=== PATIENT | male | born 1960 | race Caucasian/White ===

== ENCOUNTER → 2019-05-10 | Outpatient (CLI) | payer BC ==
--- NOTE | 2019-05-10 15:47 | CT ---
EXAMINATION TYPE: CT abdomen wo con DATE OF EXAM: 05/10/2019 COMPARISON: None INDICATION: RUQ pain. Elevated liver enzymes DLP: 916.6 mGycm, Automated exposure control for dose reduction was used. CONTRAST: 100 mL of Isovue 300. Study performed with Oral Contrast TECHNIQUE: Axial images were obtained from above the diaphragm to the iliac crests in the axial plane at 5 mm thick sections. Reconstructed images are reviewed on the computer in the coronal plane. FINDINGS: Limited CT sections are obtained the lung bases. The lung bases are clear. CT ABDOMEN: Liver: Normal Spleen: Normal Pancreas: Normal Adrenal glands: The adrenal glands are normal. Gallbladder: Gallbladder is distended. There is some subtle inflammatory type change adjacent. Clinic al consideration for acute cholecystitis is recommended. Ultrasound could be performed for additional evaluation. Kidneys: No masses are evident. No hydronephrosis is present. No cysts are present. No renal stone s are identified. Aorta: Vascular calcification is within the aorta. Inferior vena cava: Normal. Loops of bowel without contrast within the [id number] appear unremarkable. Small amount of contras t within the stomach and proximal jejunum. IMPRESSIONS: 1. Distended gallbladder with some subtle inflammatory changes adjacent. Clinical consideration for acute cholecystitis is recommended. Ultrasound is recommended for additional evaluation.
== END | disposition home or self-care (01) ==
LOC: RADCTMAIN 14:30
PROVIDERS: ATTEND Internal Medicine Gastroenterology
DX: K82.8 Other specified diseases of gallbladder (principal)
CPT/HCPCS: 74150

== ENCOUNTER 2019-05-11 12:37 | Inpatient (IN) | payer BC ==
--- NOTE | 2019-05-11 13:14 | ED ---
Abdominal Pain HPI - General Chief Complaint: Abdominal Pain Stated Complaint: Abd pain Time Seen by Provider: 05/11/19 12:51 Source: patient, family, RN notes reviewed Mode of arrival: ambulatory Limitations: no limitations - History of Present Illness Initial Comments: 58-year-old male presents emergency Department chief complaint of right upper quadrant pain. Patient states he's been having on and off symptoms for last couple weeks. Patient saw his GI doctor and has CT and lab work yesterday. They told him that his liver enzymes, pancreatic enzymes are elevated and he has CT showed evidence of cholecystitis. Patient states he has some wax and wane pain does radiate to his back. States it just does not feel well. No chest pain or shortness breath. Patient's had prior hernia repair when he was 13 no other abdominal surgeries. Patient states that he has been very dark. He's been having some diarrhea. - Related Data Allergies Allergy/AdvReac Type Severity Reaction Status Date / Time ondansetron [From Zofran] Allergy Unknown Verified 05/11/19 12:47 Review of Systems ROS Statement: Those systems with pertinent positive or pertinent negative responses have been documented in the HPI. ROS Other: All systems not noted in ROS Statement are negative. Past Medical History Past Medical History: Diabetes Mellitus, Hypertension History of Any Multi-Drug Resistant Organisms: MRSA Date of last positivie culture/infection: 2002 MDRO Source:: groin Past Surgical History: Hernia Repair Past Psychological History: No Psychological Hx Reported Smoking Status: Never smoker Past Alcohol Use History: None Reported Past Drug Use History: None Reported General Exam Limitations: no limitations General appearance: alert, in no apparent distress Head exam: Present: atraumatic, normocephalic, normal inspection Eye exam: Present: normal appearance, PERRL, EOMI. Absent: scleral icterus, conjunctival injection, periorbital swelling Respiratory exam: Present: normal lung sounds bilaterally. Absent: respiratory distress, wheezes, rales, rhonchi, stridor Cardiovascular Exam: Present: regular rate, normal rhythm, normal heart sounds. Absent: systolic murmur, diastolic murmur, rubs, gallop, clicks GI/Abdominal exam: Present: soft, tenderness (Moderate right upper quadrant tenderness), normal bowel sounds. Absent: distended, guarding, rebound, rigid Back exam: Absent: CVA tenderness (R), CVA tenderness (L) Neurological exam: Present: alert Skin exam: Present: warm, dry, intact, normal color. Absent: rash Course Vital Signs 05/11/19 05/11/19 12:42 13:48 Temperature 98.2 F 98.3 F Pulse Rate 86 77 Respiratory 16 18 Rate Blood Pressure 150/85 165/85 O2 Sat by Pulse 99 99 Oximetry Medical Decision Making - Medical Decision Making Labs reveal evidence of acute pancreatitis, transaminitis with ultrasound consistent with acute cholecystitis. Patient will be admitted to medicine with consult to Dr. padilla and Dr. Sethi. Patient was started on antibiotics. - Lab Data Result diagrams: 05/11/19 13:05 05/11/19 13:05 Lab Results 05/11/19 05/11/19 05/11/19 Range/Units 13:05 13:05 13:05 WBC 7.8 (3.8-10.6) k/uL RBC 4.25 L (4.30-5.90) m/uL Hgb 11.9 L (13.0-17.5) gm/dL Hct 36.5 L (39.0-53.0) % MCV 85.8 (80.0-100.0) fL MCH 28.0 (25.0-35.0) pg MCHC 32.6 (31.0-37.0) g/dL RDW 13.0 (11.5-15.5) % Plt Count 343 (150-450) k/uL Neutrophils % 81 % Lymphocytes % 11 % Monocytes % 4 % Eosinophils % 2 % Basophils % 2 % Neutrophils # 6.3 (1.3-7.7) k/uL Lymphocytes # 0.8 L (1.0-4.8) k/uL Monocytes # 0.3 (0-1.0) k/uL Eosinophils # 0.1 (0-0.7) k/uL Basophils # 0.1 (0-0.2) k/uL Sodium 134 L (137-145) mmol/L Potassium 4.9 (3.5-5.1) mmol/L Chloride 103 (98-107) mmol/L Carbon Dioxide 24 (22-30) mmol/L Anion Gap 7 mmol/L BUN 26 H (9-20) mg/dL Creatinine 1.89 H (0.66-1.25) mg/dL Est GFR (CKD-EPI)AfAm 45 (>60 ml/min/1.73 sqM) Est GFR (CKD-EPI)NonAf 39 (>60 ml/min/1.73 sqM) Glucose 251 H (74-99) mg/dL Plasma Lactic Acid James 1.2 (0.7-2.0) mmol/L Calcium 8.3 L (8.4-10.2) mg/dL Total Bilirubin 1.4 H (0.2-1.3) mg/dL AST 93 H (17-59) U/L ALT 192 H (4-49) U/L Alkaline Phosphatase 465 H (38-126) U/L Total Protein 6.3 (6.3-8.2) g/dL Albumin 2.9 L (3.5-5.0) g/dL Amylase 98 (30-110) U/L Lipase 730 H (23-300) U/L Disposition Clinical Impression: Acute cholecystitis, Acute pancreatitis, Transaminitis Disposition: ADMITTED IP TO THIS HOSP Condition: Fair Referrals: Salvatore Peterson DO [Primary Care Provider] - 1-2 days
[2019-05-11 13:30] LABS: Basophils # (A) 0.1 k/uL (0-0.2); Basophils % (A) 2 %; Eosinophils # (A) 0.1 k/uL (0-0.7); Eosinophils % (A) 2 %; HCT 36.5 % (39.0-53.0); HGB 11.9 gm/dL (13.0-17.5); Lymphocytes # (A) 0.8 k/uL (1.0-4.8); Lymphocytes % (A) 11 %; MCHC 32.6 g/dL (31.0-37.0); MCV 85.8 fL (80.0-100.0); Mean Platelet Volume 7.5; Monocytes # (A) 0.3 k/uL (0-1.0); Monocytes % (A) 4 %; Neutrophils # (A) 6.3 k/uL (1.3-7.7); Neutrophils % (A) 81 %; Platelet Count 343 k/uL (150-450); RBC 4.25 m/uL (4.30-5.90); WBC 7.8 k/uL (3.8-10.6)
[2019-05-11 13:41] LABS: Albumin 2.9 g/dL (3.5-5.0); Calcium 8.3 mg/dL (8.4-10.2); Potassium 4.9 mmol/L (3.5-5.1); Total Bilirubin 1.4 mg/dL (0.2-1.3); Total Protein 6.3 g/dL (6.3-8.2)
--- NOTE | 2019-05-11 13:48 | US ---
EXAMINATION TYPE: US gallbladder DATE OF EXAM: 05/11/2019 COMPARISON: CT done 05/10/2019 CLINICAL HISTORY: abdnormal CT, RUQ pain. EXAM MEASUREMENTS: Liver Length: 14.8 cm Gallbladder Wall: 0.9 cm CBD: 0.4 cm Right Kidney: 14.1 x 5.8 x 5.5 cm Technically difficult study due to extensive midline bowel gas Pancreas: Obscured by bowel gas Liver: wnl Gallbladder: distended at 10.1 cm, full of thick layering sludge.Thickened wall. Evidence for sonographic Mauricio's sign: Yes CBD: wnl Right Kidney: No hydronephrosis or masses seen The pancreas is not visualized. The liver is normal in size without biliary dilatation. The gallbladder is full of sludge. The gallbladder wall is thickened measuring 9 mm. This common hepa tic duct measures 4 mm. There is a positive sonographic Mauricio's sign. The right kidney is normal. IMPRESSION: SLUDGE-FILLED GALLBLADDER WITH A THICKENED WALL AND POSITIVE SONOGRAPHIC MAURICIO'S SIGN SUGGEST ACUTE CHOLECYSTITIS.
[2019-05-11] MEDS ORDERED: PIPERACILLIN-TAZOBACTAM 3.375 GM in SODIUM CHLORIDE 0.9% 100 ML IVPB STA (14:03)
[2019-05-11] MEDS ORDERED: HYDROmorphone 1 MG/ML 1 ML SYRINGE IVP PRN (14:19)
[2019-05-11] MEDS ORDERED: NALOXONE 0.4 MG/ML 1 ML VIAL IV PRN (14:19)
[2019-05-11] MEDS ORDERED: HYDROmorphone 0.5 MG/0.5 ML SYRINGE IVP PRN (14:19)
[2019-05-11] MEDS: SODIUM CHLORIDE 0.9% 1,000 ML IV SCH (14:22)
[2019-05-11 17:10] LABS: Glucose,Whole Blood 145 mg/dL (75-99)
[2019-05-11] MEDS: INSULIN ASPART (NovoLOG) 100 UNIT/ML VIAL SQ SCH ×2 (17:34→22:31)
--- NOTE | 2019-05-11 19:01 | P.GSCN ---
History of Present Illness Consult date: 05/11/19 Reason for Consult: Acute cholecystitis History of present illness: 58-year-old male has had complaints of abdominal pain for the last 7-10 days. Pain has been present in the mid abdomen, right upper quadrant, and back. He was seen by his primary care physician this past Monday. Labs reveal elevated liver enzymes. He underwent evaluation by GI in the outpatient setting yesterday. CAT scan abdomen was then ordered. CAT scan shows a distended gallbladder with inflammatory changes. No significant evidence of pancreatitis or biliary dilation. No filling defect in the common bile duct seen. Today in the hospital his liver enzymes continue to show a trend towards improvement. Amylase is normal lipase is significantly elevated at over 700. Consult was placed to myself and Dr. Sethi. Patient states his pain today is about a 4 out of 10 where it was a 10 out of 10 5-6 days ago. Patient is diabetic. He has noticed some dark urine. Also noticed his skin was yellowish in color but improved. Review of Systems The patient denies any acute changes in vision or hearing, no dysphagia or odynophagia, no chest pain or shortness of breath, no dysuria or hematuria, no headache, no runny nose, no rectal bleeding or melena, no unexplained weight loss Past Medical History Past Medical History: Diabetes Mellitus, Hypertension History of Any Multi-Drug Resistant Organisms: MRSA Year Discovered:: 2002 MDRO Source:: groin Past Surgical History: Hernia Repair Past Psychological History: No Psychological Hx Reported Smoking Status: Never smoker Past Alcohol Use History: None Reported Past Drug Use History: None Reported Medications and Allergies Home Medications Medication Instructions Recorded Confirmed Type Dulaglutide [Trulicity] 0.75 mg SQ WE 05/11/19 05/11/19 History Glimepiride [Amaryl] 4 mg PO BID 05/11/19 05/11/19 History Omeprazole 20 mg PO DAILY 05/11/19 05/11/19 History Quinapril HCl [Accupril] 20 mg PO DAILY 05/11/19 05/11/19 History metFORMIN HCL 1,000 mg PO BID 05/11/19 05/11/19 History Allergies Allergy/AdvReac Type Severity Reaction Status Date / Time ondansetron [From Zofran] Allergy Unknown Verified 05/11/19 14:30 Surgical - Exam Vital Signs Temp Pulse Resp BP Pulse Ox 98.2 F 86 16 150/85 99 05/11/19 12:42 05/11/19 12:42 05/11/19 12:42 05/11/19 12:42 05/11/19 12:42 Physical exam: General: Well-developed, well-nourished HEENT: Normocephalic, sclerae nonicteric Abdomen: Right upper quadrant tenderness, nondistended Extremities: No edema Neuro: Alert and oriented Results - Labs 05/11/19 13:05 05/11/19 13:05 Abnormal Lab Results - Last 24 Hours (Table) 05/11/19 05/11/19 05/11/19 Range/Units 13:05 13:05 17:09 RBC 4.25 L (4.30-5.90) m/uL Hgb 11.9 L (13.0-17.5) gm/dL Hct 36.5 L (39.0-53.0) % Lymphocytes # 0.8 L (1.0-4.8) k/uL Sodium 134 L (137-145) mmol/L BUN 26 H (9-20) mg/dL Creatinine 1.89 H (0.66-1.25) mg/dL Glucose 251 H (74-99) mg/dL POC Glucose (mg/dL) 145 H (75-99) mg/dL Calcium 8.3 L (8.4-10.2) mg/dL Total Bilirubin 1.4 H (0.2-1.3) mg/dL AST 93 H (17-59) U/L ALT 192 H (4-49) U/L Alkaline Phosphatase 465 H (38-126) U/L Albumin 2.9 L (3.5-5.0) g/dL Lipase 730 H (23-300) U/L Diabetes panel 05/11/19 Range/Units 13:05 Sodium 134 L (137-145) mmol/L Potassium 4.9 (3.5-5.1) mmol/L Chloride 103 (98-107) mmol/L Carbon Dioxide 24 (22-30) mmol/L BUN 26 H (9-20) mg/dL Creatinine 1.89 H (0.66-1.25) mg/dL Glucose 251 H (74-99) mg/dL Calcium 8.3 L (8.4-10.2) mg/dL AST 93 H (17-59) U/L ALT 192 H (4-49) U/L Alkaline Phosphatase 465 H (38-126) U/L Total Protein 6.3 (6.3-8.2) g/dL Albumin 2.9 L (3.5-5.0) g/dL Calcium panel 05/11/19 Range/Units 13:05 Calcium 8.3 L (8.4-10.2) mg/dL Albumin 2.9 L (3.5-5.0) g/dL Pituitary panel 05/11/19 Range/Units 13:05 Sodium 134 L (137-145) mmol/L Potassium 4.9 (3.5-5.1) mmol/L Chloride 103 (98-107) mmol/L Carbon Dioxide 24 (22-30) mmol/L BUN 26 H (9-20) mg/dL Creatinine 1.89 H (0.66-1.25) mg/dL Glucose 251 H (74-99) mg/dL Calcium 8.3 L (8.4-10.2) mg/dL Adrenal panel 05/11/19 Range/Units 13:05 Sodium 134 L (137-145) mmol/L Potassium 4.9 (3.5-5.1) mmol/L Chloride 103 (98-107) mmol/L Carbon Dioxide 24 (22-30) mmol/L BUN 26 H (9-20) mg/dL Creatinine 1.89 H (0.66-1.25) mg/dL Glucose 251 H (74-99) mg/dL Calcium 8.3 L (8.4-10.2) mg/dL Total Bilirubin 1.4 H (0.2-1.3) mg/dL AST 93 H (17-59) U/L ALT 192 H (4-49) U/L Alkaline Phosphatase 465 H (38-126) U/L Total Protein 6.3 (6.3-8.2) g/dL Albumin 2.9 L (3.5-5.0) g/dL Assessment and Plan (1) Choledocholithiasis with acute cholecystitis Narrative/Plan: 58-year-old male with gallstone pancreatitis, choledocholithiasis, and acute cholecystitis. Patient's liver enzymes are trending down. Patient may have passed the stone already at this point. Residual acute cholecystitis seen on CAT scan and ultrasound. Case reviewed with GI by phone. They will evaluate the patient early tomorrow morning. Tentatively will plan laparoscopic cholecystectomy, possible open cholecystectomy tomorrow. Patient's clinical scenario was discussed in detail with him. He understands that there is a higher than usual risk of retained common bile duct stone given the history. If cholecystectomy occurs prior to any CBD evaluation than ERCP may be required postoperatively. Risks of bleeding, infection, bile leak, bile duct injury, trocar injury, conversion to an open procedure, hernia, anesthesia related complications were reviewed. The patient understands and wishes to proceed if cleared by GI. Current Visit: Yes Status: Acute Code(s): K80.42 - CALCULUS OF BILE DUCT W ACUTE CHOLECYSTITIS W/O OBSTRUCTION SNOMED Code(s): 32151362
[2019-05-11 19:41] LABS: Glucose,Whole Blood 92 mg/dL (75-99)
[2019-05-11 20:15] LABS: Appearance,Urine Clear (Clear); Bilirubin,Urine Negative (Negative); Blood,Urine Small (Negative); Color,Urine Yellow; Glucose,Urine (UA) 3+ (Negative); Ketones,Urine Negative (Negative); Leukocyte Esterase,Urine Negative (Negative); Mucus,Urine Rare /hpf; Nitrite,Urine Negative (Negative); Protein,Urine 3+ (Negative); RBC,Urine 1 /hpf (0-5); Specific Gravity,Urine 1.015 (1.001-1.035); WBC,Urine 1 /hpf (0-5)
[2019-05-11] MEDS: PIPERACILLIN-TAZOBACTAM 3.375 GM in SODIUM CHLORIDE 0.9% 100 ML IVPB SCH (23:46)
[2019-05-12 00:03] LABS: Glucose,Whole Blood 58 mg/dL (75-99)
[2019-05-12 00:28] LABS: Glucose,Whole Blood 71 mg/dL (75-99)
[2019-05-12 00:49] LABS: Glucose,Whole Blood 99 mg/dL (75-99)
[2019-05-12] MEDS: SODIUM CHLORIDE 0.9% 1,000 ML IV SCH ×3 (02:35→22:19)
[2019-05-12 04:20] LABS: Glucose,Whole Blood 176 mg/dL (75-99)
[2019-05-12 06:58] LABS: Glucose,Whole Blood 143 mg/dL (75-99)
[2019-05-12] MEDS: INSULIN ASPART (NovoLOG) 100 UNIT/ML VIAL SQ SCH ×4 (07:27→20:06)
[2019-05-12 07:53] LABS: Basophils # (A) 0.1 k/uL (0-0.2); Basophils % (A) 1 %; Eosinophils # (A) 0.1 k/uL (0-0.7); Eosinophils % (A) 1 %; HCT 33.3 % (39.0-53.0); HGB 10.8 gm/dL (13.0-17.5); Lymphocytes # (A) 0.9 k/uL (1.0-4.8); Lymphocytes % (A) 9 %; MCH 28.1 pg (25.0-35.0); MCHC 32.3 g/dL (31.0-37.0); MCV 86.9 fL (80.0-100.0); Mean Platelet Volume 7.5; Monocytes # (A) 0.3 k/uL (0-1.0); Monocytes % (A) 3 %; Neutrophils # (A) 8.6 k/uL (1.3-7.7); Neutrophils % (A) 85 %; Platelet Count 335 k/uL (150-450); RBC 3.83 m/uL (4.30-5.90); RDW 12.9 % (11.5-15.5); WBC 10.1 k/uL (3.8-10.6)
[2019-05-12 08:06] LABS: Albumin 2.6 g/dL (3.5-5.0); Calcium 8.4 mg/dL (8.4-10.2); Potassium 5.1 mmol/L (3.5-5.1); Total Bilirubin 1.4 mg/dL (0.2-1.3); Total Protein 5.8 g/dL (6.3-8.2)
[2019-05-12] MEDS: PIPERACILLIN-TAZOBACTAM 3.375 GM in SODIUM CHLORIDE 0.9% 100 ML IVPB SCH ×3 (08:17→23:50)
[2019-05-12 09:01] LABS: Amylase 75 U/L (30-110)
[2019-05-12] MEDS ORDERED: BUPIVACAINE (PF) 0.25% 30 ML VIAL SQ ONE ×2 (10:04)
--- NOTE | 2019-05-12 10:28 | P.PN ---
Progress Note - Text Progress Note Date: 05/12/19 Patient seen today in preop. He was evaluated earlier today by GI. We spoke by phone following that evaluation. She is in agreement that proceeding with cholecystectomy at this time is reasonable. She has no immediate plans for ERCP. Possible liver biopsy will be performed if the liver has an abnormal appearance. Additional workup is planned by GI postoperatively based on the trending lab values. Clinical scenario discussed with the was present here today. All questions answered.
[2019-05-12] MEDS ORDERED: NEOSTIGMINE 1 MG/ML 10 ML VIAL ONE (10:54)
[2019-05-12] MEDS ORDERED: GLYCOPYRROLATE 0.2 MG/ML 2 ML VIAL ONE (10:54)
[2019-05-12] MEDS ORDERED: fentaNYL (PF) 50 MCG/ML 2 ML AMP ONE (10:54)
[2019-05-12] MEDS ORDERED: HYDROmorphone (PF) 1 MG/ML ONE (10:54)
[2019-05-12] MEDS ORDERED: SUCCINYLCHOLINE CHLORIDE VIAL 200 MG/10 ML VIAL IV ONE (10:54)
[2019-05-12] MEDS ORDERED: LIDOCAINE 2% INJ 20 MG/ML (20 ML MDV) ONE (10:54)
[2019-05-12] MEDS ORDERED: MIDAZOLAM 2 MG/2 ML VIAL ONE (10:54)
[2019-05-12] MEDS ORDERED: ROCURONIUM BROMIDE 10 MG/ML 10 ML VIAL IV ONE (10:54)
[2019-05-12] MEDS ORDERED: LIDOCAINE 1% INJ 10MG/ML (20 ML MDV) ONE (10:54)
[2019-05-12] MEDS ORDERED: PROPOFOL 10 MG/ML 20 ML VIAL IV ONE (10:54)
[2019-05-12] MEDS ORDERED: LACTATED RINGERS 1,000 ML IV ONE ×3 (10:55→13:29)
--- NOTE | 2019-05-12 10:55 | CONS ---
CONSULTATION DATE OF CONSULTATION: May 12, 2019. REQUESTING PHYSICIAN: Dr. Peterson. REASON FOR CONSULTATION: Abdominal pain, elevated LFTs. HISTORY OF PRESENT ILLNESS: The patient is a 58-year-old pleasant white male who came into the emergency room yesterday and complaining of not feeling well for the last 10 days duration. He initially had some upper respiratory symptoms around [place] time that lasted for 3-4 days and resolved. Subsequently on [place], he started experiencing periumbilical and right upper quadrant abdominal pain that was more like an achy feeling that continued to progressively get worse. In the next 2 days, the pain was much more intense, associated with some nausea and bilious emesis. He got concerned. He went and saw Dr. Peterson on an outpatient basis a week ago and was noted to have elevated LFTs with bilirubin of 3.3, mild elevation of serum transaminases in the 200 range and slightly elevated lipase at 700. He was given some Zofran for the nausea and vomiting and he was referred to GI for further workup. In the meantime, he was seen by a nurse practitioner Marilin Sims about 2 days ago and repeat labs showed slightly improved bilirubin to 2.4 with mild improvement of serum transaminases. He had a CT of the abdomen and pelvis done on an outpatient basis that showed a distended gallbladder with some inflammatory changes consistent with possible acute cholecystitis. The patient was notified by the results and in the meantime, he continued to not feel well and hence he came into the emergency room yesterday and subsequently admitted to the hospital for further evaluation. He had a repeat ultrasound of the gallbladder done which once again showed distended gallbladder which was slightly thickened and possibility of acute cholecystitis is being considered. Dr. James was consulted and patient is scheduled for gallbladder surgery this morning. He never had these symptoms in past. No history of chronic liver disease. He has longstanding history of diabetes mellitus for 15 years and obesity. No recent new medications have been given to him in the last 2 months. PAST MEDICAL HISTORY: He has past medical history of diabetes mellitus, hypertension. PAST SURGICAL HISTORY: Hernia repair. MEDICATIONS: At home include: Amaryl, Trulicity, omeprazole, Accupril, and metformin. ALLERGIES: ZOFRAN. SOCIAL HISTORY: No smoking. No alcohol use. FAMILY HISTORY: Unremarkable. REVIEW OF SYMPTOMS: CARDIOPULMONARY: No chest pain, shortness of breath. GENITOURINARY: No dysuria or hematuria. MUSCULOSKELETAL unremarkable. SKIN unremarkable. ENDOCRINE unremarkable. PSYCHIATRIC unremarkable. NEUROLOGY unremarkable. ENT/vision unremarkable. CONSTITUTIONAL: No recent weight loss. No fever, chills, night sweats. PHYSICAL EXAMINATION: He appears comfortable. No apparent distress. Vital signs are stable. Blood pressure is 158/88, pulse rate 78. Temperature 98.2. HEENT examination unremarkable. Conjunctivae pink. Sclerae anicteric. Oral cavity no lesions. NECK: No JVD or lymph node enlargement. CHEST: Clear to auscultation. HEART: Regular rate and rhythm. ABDOMEN: Soft. There was minimal tenderness in the right upper quadrant area. The rest of the abdomen was benign. Bowel sounds are positive. No organomegaly. EXTREMITIES: No pedal edema. SKIN no rashes. NEUROLOGIC: Alert and oriented x3. No focal deficits. LABS: At the time of admission to the hospital, WBC 7.8, hemoglobin 11.9, platelets are within normal limits. Sodium 134, BUN 26, creatinine 1.89, and calcium 8.3, T- bilirubin is 1.4, AST 93, ALT 192, alkaline phosphatase 465 and lipase was 730. Labs from today: T-bilirubin is around 1.4, AST 60, ALT 147, alkaline phosphatase is 416, lipase is 449, BUN is 23, creatinine 1.93. Hemoglobin today is 10.8, WBC 10.1, and platelets 335,000. Ultrasound of the gallbladder did show distended gallbladder with sludge with thickening of the gallbladder wall consistent with possible acute cholecystitis. IMPRESSION: The patient presents with ongoing epigastric right upper quadrant abdominal pain for the last 10 days duration. Symptoms have been progressively getting worse associated with intermittent nausea, vomiting. He was also noted to have elevated LFTs with jaundice and bilirubin a week ago was 3.3, which has slowly come down to 1.4, alkaline phosphatase is elevated around 400. CT of the abdomen without contrast as well as ultrasound of the abdomen showed distended gallbladder with thickening of the gallbladder wall consistent with acute cholecystitis. It is likely that clinically patient does have acute cholecystitis which is causing some of the symptoms, but the elevated LFTs could indicate possibility of underlying chronic liver disease. The patient has no prior history of chronic liver disease. No history of jaundice or hepatitis in the past. Doubt choledocholithiasis but this cannot be entirely excluded. RECOMMENDATIONS: 1. The patient is already scheduled for laparoscopic cholecystectomy by Dr. James today, which he can proceed. 2. At the time of surgery, can consider liver biopsy based on appearance of the liver. 3. In the meantime, we will continue to watch his serum transaminases closely. 4. May consider an MRCP. 5. We will consider workup for chronic liver disease if he continues to have persistent elevation of serum transaminases. The plan was discussed with the patient, his family, as well as Dr. James. We will follow with him closely during his hospital stay. Thank you for this consultation. MMODL / IJN: [id number] /
[2019-05-12] MEDS ORDERED: ceFAZolin 1,000 MG VIAL IVPB ONE (11:23)
[2019-05-12] MEDS: HYDROmorphone 1 MG/ML 1 ML SYRINGE IVP ONE ×2 (11:58→12:02)
--- NOTE | 2019-05-12 13:59 | P.OP ---
Date of Procedure: 05/12/19 Procedure(s) Performed: PREOPERATIVE DIAGNOSIS: Acute cholecystitis with history of gallstone pancreatitis POSTOPERATIVE DIAGNOSIS: Same PROCEDURE: Attempted laparoscopic cholecystectomy, open cholecystectomy SURGEON: Erkia EBL: 300 mL ANESTHESIA: Gen. COMPLICATIONS: None OPERATIVE PROCEDURE: The patient was brought and placed on the operating room table in the supine position. The patient was placed under general anesthesia at that time. The abdomen was prepped and draped in the usual sterile fashion. A small vertical infraumbilical incision was made. The fascia was grasped with the Sunni forceps. The fascia was retracted anteriorly. The Veress needle was advanced into the peritoneal cavity. The saline drop test was normal. Insufflation took place up to 15 mmHg. A 5 mm optical trocar was advanced and the peritoneal cavity. 2 additional 5 mm trochars were placed in the right upper quadrant under direct visualization. A 12 mm trocar was advanced into the epigastric incision site. The omentum was noted to be adherent to the gallbladder fairly densely. Blunt dissection occurred and we were able to identify the proximal fundus of the gallbladder. It was acutely inflamed. The wall was clearly quite thickened. This was not able to be grasped because of the distention of the gallbladder. A small opening was made and the contents were evacuated. Clear fluid was encountered consistent with hydrops. Further blunt dissection then occurred while trying to retract the gallbladder superiorly laterally and anteriorly. The degree of adhesions between the omentum and the gallbladder was very significant. As we reached the infundibulum further blunt dissection ensued and I was able to visualize what I thought represented the cystic duct. We were able to encircle this structure using blunt dissection. A 2-0 Ethibond was used to ligate this structure along with a 12 mm clip. This was then divided and the specimen side. As I bluntly dissected posterior to that I encountered necrotic gallbladder and a small opening was identified in the gallbladder. A large amount of sludge was evacuated through that opening. At this point I was not confident that the structure ligated was in fact the cystic duct and given the gangrenous changes of the gallbladder at this level I decided it would be best to convert to an open approach. The pneumoperitoneum was evacuated. An incision was made between the 12 mm site and the lateral 5 mm incision site. The skin was divided using the scalpel. The subcutaneous tissues and fascia were divided using electrocautery. The Bookwalter retractor was utilized. I then removed the gallbladder from the liver bed using electrocautery. Again this was painstaking given the degree of inflammatory change present. As we approached the infundibulum we did identify that the gangrenous changes involved primarily the infundibulum. 2 small vessels were seen entering into the gallbladder and clipped. The structure that had been ligated laparoscopically did in fact appear to represent the cystic duct. No additional ductal structures were seen. There was never any bile present within the field. The gallbladder was passed off. The area was copiously irrigated with saline. No bleeding or bilious drainage was seen. A drain was then brought into the field from a stab incision in the right midabdomen. This was placed along the right gutter and gallbladder fossa. This is sutured in place using a 2-0 silk stitch. The fascia was then reapproximated in 2 layers using a double-stranded #1 PDS sutures. The subcutaneous tissues were closed using 3-0 Vicryl sutures. The skin was closed using jermain and the 2 additional trocar sites were closed using 4-0 Monocryl sutures. Sterile dressings were applied. At the end of this procedure the sponge and needle counts were correct. DISPOSITION: Stable to the recovery room
[2019-05-12] MEDS ORDERED: ROPIVACAINE 250 MG, HYDROMORPHONE (PF) 5 MG in SODIUM CHLORIDE 0.9% 200 ML EPIDURAL PRN (14:50)
[2019-05-12] MEDS ORDERED: NALOXONE 0.4 MG/ML 1 ML VIAL IV PRN (14:50)
[2019-05-12 17:00] LABS: Glucose,Whole Blood 225 mg/dL (75-99)
[2019-05-12] MEDS: HEPARIN SODIUM,PORCINE 5,000 UNIT/ML 1 ML VIAL SQ SCH ×2 (17:26→23:49)
[2019-05-12] MEDS ORDERED: METOCLOPRAMIDE 5 MG/ML 2 ML VIAL IVP PRN (18:33)
[2019-05-12 20:23] LABS: Glucose,Whole Blood 243 mg/dL (75-99)
--- NOTE | 2019-05-12 23:18 | P.HPIM ---
History of Present Illness H&P Date: 05/12/19 Chief Complaint: Abdominal pain History of presenting complaint: This is a pleasant 58-year-old patient of Dr. Adrian Monreal. Patient started feeling unwell from the ears. Started having right upper quadrant pain and discomfort achiness. Patient progressive to get worse. Started having some nausea and vomiting. He went and saw his family doctor about a week ago and was found to have elevated LFTs and bilirubin. Was given Zofran and referred for GI consultation. He was seen by no spectator at . to was office Monday she'll 2 days ago and now some improvement in her liver parameters. Computed tomography scan done as an outpatient did show distention of the gallbladder with the patient from retreat changes suggestive of acute cholecystitis. Patient's symptoms are per persisted. Patient did present to the ER. Ultrasound did confirm the same. I came to see the patient twice this morning at all been taken to the operating room. There from her laparoscopic was converted to open cholecystectomy. Gangrenous gallbladder was encountered. Patient has a PROSPER drain. Review of systems: GEN.: Weak tired fever chills EYES: None HEENT: None NECK: None RESPIRATORY: None CARDIOVASCULAR: None GASTROINTESTINAL: As above GENITOURINARY: None MUSCULOSKELETAL: None LYMPHATICS: None HEMATOLOGICAL: None PSYCHIATRY: None NEUROLOGICAL: None Past history to include: Diabetes, hypertension, MRSA infection Social history: Does not smoke or drink cold. Does computer designing. . Negative family history Physical examination: VITAL SIGNS: 98.2, 86, 16, 150/85, 99% room air GENERAL: [BMI 35.7, laying in bed tired. Epidural place EYES: Pupils equal. Conjunctiva normal. HEENT: External appearance of nose and ears normal, oral cavity grossly normal. NECK: JVD not raised; masses not palpable. HEART: First and second heart sounds are normal; no edema. LUNGS: Respiratory rate normal; clear to auscultation. ABDOMEN: Soft, tender, right PROSPER drain present, decreased bowel sounds liver spleen not palpable, no masses palpable. PSYCH: Alert and oriented x3; mood and affect normal. NEUROLOGICAL: Cranial nerves grossly intact; no facial asymmetry, power and sensation grossly intact. LYMPHATICS: No lymph nodes palpable in the axilla and neck INVESTIGATIONS, reviewed in the clinical context: White count 7.8 hemoglobin 11.9 platelets 343 potassium 4.9 Bun 26 crit 1.89 Total bilirubin 1.4 AST 93 AST 192 Amylase 98 lipase 7:30 [id number], 92, 58 Abdominal ultrasound-Lai flow sludge and thickened colon, hepatic duct 4 mm positive Mauricio sign Computed tomography scan of the abdomen from May 10-gallbladder distended Assessment: -Acute gangrenous cholecystitis, followed by cholecystectomy patient requiring laparoscopically converted to open. Patient has a PROSPER drain -Obesity BMI 35.7 -Essential hypertension -Diabetes mellitus type 2 on oral hypoglycemic, uncontrolled with hypoglycemia - Plan: Patient is currently on IV Zosyn. Epidural. Blood pressures running high. We'll put the patient were Catapres patch. Accu-Cheks will be followed with sliding scale include. Currently oral hypoglycemic 7 held. Care was discussed with the patient question were answered .. Patient's surgeon is Dr. Malik GI is Dr. Jamia Cervantes Past Medical History Past Medical History: Diabetes Mellitus, Hypertension History of Any Multi-Drug Resistant Organisms: MRSA Date of last positivie culture/infection: 2002 MDRO Source:: groin Past Surgical History: Hernia Repair Past Psychological History: No Psychological Hx Reported Smoking Status: Never smoker Past Alcohol Use History: None Reported Past Drug Use History: None Reported Medications and Allergies Home Medications Medication Instructions Recorded Confirmed Type Dulaglutide [Trulicity] 0.75 mg SQ WE 05/11/19 05/11/19 History Glimepiride [Amaryl] 4 mg PO BID 05/11/19 05/11/19 History Omeprazole 20 mg PO DAILY 05/11/19 05/11/19 History Quinapril HCl [Accupril] 20 mg PO DAILY 05/11/19 05/11/19 History metFORMIN HCL 1,000 mg PO BID 05/11/19 05/11/19 History Allergies Allergy/AdvReac Type Severity Reaction Status Date / Time ondansetron [From Zofran] Allergy Unknown Verified 05/11/19 14:30 Physical Exam Vitals: Vital Signs Temp Pulse Pulse Resp BP BP Pulse Ox 05/12/19 04:23 98.2 F 78 16 158/88 97 05/11/19 19:43 98.1 F 88 16 168/88 98 05/11/19 18:20 88 189/93 05/11/19 16:10 98.5 F 84 22 190/103 99 05/11/19 15:30 98.8 F 77 16 175/85 99 05/11/19 13:48 98.3 F 77 18 165/85 99 05/11/19 12:42 98.2 F 86 16 150/85 99 Intake and Output 05/11/19 05/12/19 05/12/19 22:59 06:59 14:59 Intake Total 1600 700 Balance 1600 700 Intake: Amount of Fluid Infused ( 1200 ml) Intake, IV Titration 400 700 Amount Piperacillin-Tazobactam 3 100 .375 gm In Sodium Chloride 0.9% 100 ml @ 25 mls/hr IVPB Q8HR [facility] Rx# :[id number] Sodium Chloride 0.9% 1, 400 600 000 ml @ 100 mls/hr IV . Q10H [facility] Rx#:[id number] Other: Voiding Method Toilet Toilet # Voids 2 2 Weight 116.12 kg Results CBC & Chem 7: 05/12/19 07:15 05/12/19 07:15 Labs: Abnormal Lab Results - Last 24 Hours (Table) 05/11/19 05/11/19 05/11/19 Range/Units 13:05 13:05 16:40 RBC 4.25 L (4.30-5.90) m/uL Hgb 11.9 L (13.0-17.5) gm/dL Hct 36.5 L (39.0-53.0) % Neutrophils # (1.3-7.7) k/uL Lymphocytes # 0.8 L (1.0-4.8) k/uL Sodium 134 L (137-145) mmol/L BUN 26 H (9-20) mg/dL Creatinine 1.89 H (0.66-1.25) mg/dL Glucose 251 H (74-99) mg/dL POC Glucose (mg/dL) (75-99) mg/dL Calcium 8.3 L (8.4-10.2) mg/dL Total Bilirubin 1.4 H (0.2-1.3) mg/dL AST 93 H (17-59) U/L ALT 192 H (4-49) U/L Alkaline Phosphatase 465 H (38-126) U/L Total Protein (6.3-8.2) g/dL Albumin 2.9 L (3.5-5.0) g/dL Lipase 730 H (23-300) U/L Urine Protein 3+ H (Negative) Urine Glucose (UA) 3+ H (Negative) Urine Blood Small H (Negative) Urine Mucus Rare H (None) /hpf 05/11/19 05/12/19 05/12/19 Range/Units 17:09 00:01 00:25 RBC (4.30-5.90) m/uL Hgb (13.0-17.5) gm/dL Hct (39.0-53.0) % Neutrophils # (1.3-7.7) k/uL Lymphocytes # (1.0-4.8) k/uL Sodium (137-145) mmol/L BUN (9-20) mg/dL Creatinine (0.66-1.25) mg/dL Glucose (74-99) mg/dL POC Glucose (mg/dL) 145 H 58 L 71 L (75-99) mg/dL Calcium (8.4-10.2) mg/dL Total Bilirubin (0.2-1.3) mg/dL AST (17-59) U/L ALT (4-49) U/L Alkaline Phosphatase (38-126) U/L Total Protein (6.3-8.2) g/dL Albumin (3.5-5.0) g/dL Lipase (23-300) U/L Urine Protein (Negative) Urine Glucose (UA) (Negative) Urine Blood (Negative) Urine Mucus (None) /hpf 05/12/19 05/12/19 05/12/19 Range/Units 04:19 06:57 07:15 RBC 3.83 L (4.30-5.90) m/uL Hgb 10.8 L (13.0-17.5) gm/dL Hct 33.3 L (39.0-53.0) % Neutrophils # 8.6 H (1.3-7.7) k/uL Lymphocytes # 0.9 L (1.0-4.8) k/uL Sodium (137-145) mmol/L BUN (9-20) mg/dL Creatinine (0.66-1.25) mg/dL Glucose (74-99) mg/dL POC Glucose (mg/dL) 176 H 143 H (75-99) mg/dL Calcium (8.4-10.2) mg/dL Total Bilirubin (0.2-1.3) mg/dL AST (17-59) U/L ALT (4-49) U/L Alkaline Phosphatase (38-126) U/L Total Protein (6.3-8.2) g/dL Albumin (3.5-5.0) g/dL Lipase (23-300) U/L Urine Protein (Negative) Urine Glucose (UA) (Negative) Urine Blood (Negative) Urine Mucus (None) /hpf 05/12/19 05/12/19 Range/Units 07:15 07:15 RBC (4.30-5.90) m/uL Hgb (13.0-17.5) gm/dL Hct (39.0-53.0) % Neutrophils # (1.3-7.7) k/uL Lymphocytes # (1.0-4.8) k/uL Sodium 136 L (137-145) mmol/L BUN 23 H (9-20) mg/dL Creatinine 1.93 H (0.66-1.25) mg/dL Glucose 153 H (74-99) mg/dL POC Glucose (mg/dL) (75-99) mg/dL Calcium (8.4-10.2) mg/dL Total Bilirubin 1.4 H (0.2-1.3) mg/dL AST 60 H (17-59) U/L ALT 147 H (4-49) U/L Alkaline Phosphatase 416 H (38-126) U/L Total Protein 5.8 L (6.3-8.2) g/dL Albumin 2.6 L (3.5-5.0) g/dL Lipase 449 H (23-300) U/L Urine Protein (Negative) Urine Glucose (UA) (Negative) Urine Blood (Negative) Urine Mucus (None) /hpf Thrombosis Risk Factor Assmnt - Choose All That Apply Each Factor Represents 1 point: Age 41-60 years Each Risk Factor Represents 2 Points: Laparoscopic surgery Thrombosis Risk Factor Assessment Total Risk Factor Score: 3 Thrombosis Risk Factor Assessment Level: Moderate Risk
[2019-05-13] MEDS: SODIUM CHLORIDE 0.9% 1,000 ML IV SCH ×3 (03:35→21:30)
[2019-05-13] MEDS ORDERED: SODIUM CHLORIDE 0.9% 1,000 ML IV ONE ×2 (04:46→12:25)
[2019-05-13 07:01] LABS: Glucose,Whole Blood 228 mg/dL (75-99)
[2019-05-13] MEDS: PIPERACILLIN-TAZOBACTAM 3.375 GM in SODIUM CHLORIDE 0.9% 100 ML IVPB SCH ×2 (08:16→16:16)
[2019-05-13] MEDS: INSULIN ASPART (NovoLOG) 100 UNIT/ML VIAL SQ SCH ×4 (08:16→20:28)
[2019-05-13] MEDS: HEPARIN SODIUM,PORCINE 5,000 UNIT/ML 1 ML VIAL SQ SCH ×2 (08:16→16:17)
[2019-05-13] MEDS: PANTOPRAZOLE 40 MG/10 ML VIAL IV SCH (08:16)
[2019-05-13 09:21] LABS: Basophils # (A) 0.1 k/uL (0-0.2); Basophils % (A) 1 %; Eosinophils % (A) 0 %; HCT 34.8 % (39.0-53.0); HGB 10.9 gm/dL (13.0-17.5); Lymphocytes # (A) 0.8 k/uL (1.0-4.8); Lymphocytes % (A) 5 %; MCH 28.1 pg (25.0-35.0); MCHC 31.4 g/dL (31.0-37.0); MCV 89.4 fL (80.0-100.0); Mean Platelet Volume 8.1; Monocytes # (A) 0.5 k/uL (0-1.0); Monocytes % (A) 3 %; Neutrophils # (A) 12.7 k/uL (1.3-7.7); Neutrophils % (A) 90 %; Platelet Count 347 k/uL (150-450); RBC 3.89 m/uL (4.30-5.90); RDW 13.1 % (11.5-15.5); WBC 14.1 k/uL (3.8-10.6)
[2019-05-13 09:27] LABS: Albumin 2.9 g/dL (3.5-5.0); Calcium 7.9 mg/dL (8.4-10.2); Potassium 5.4 mmol/L (3.5-5.1); Total Bilirubin 1.2 mg/dL (0.2-1.3); Total Protein 6.3 g/dL (6.3-8.2)
[2019-05-13 11:33] LABS: Glucose,Whole Blood 215 mg/dL (75-99)
[2019-05-13] MEDS ORDERED: NALOXONE 0.4 MG/ML 1 ML VIAL IV PRN (12:06)
--- NOTE | 2019-05-13 12:06 | P.PN ---
Progress Note - Text Progress Note Date: 05/13/19 58-year-old male status post open cholecystectomy with thoracic epidural postop day #1 catheter day #2. VAS is a 0-2 out of 10 in severity depending on movement. Current rate is 7 ML's an hour. Patient has no motor sensory deficits. Does have complaints of urinary retention. He just had a full catheter placed. No compressive pruritus. Plan is to continue epidural at current setting and to switch to narcotic free solution.
[2019-05-13] MEDS: METOCLOPRAMIDE 5 MG/ML 2 ML VIAL IVP SCH ×2 (12:34→18:27)
--- NOTE | 2019-05-13 12:39 | P.PN ---
<Padma Valle Kai - Last Filed: 05/13/19 12:37> Subjective Progress Note Date: 05/13/19 CHIEF COMPLAINT: abdominal pain HISTORY OF PRESENT ILLNESS: 58-year-old male who is status post attempted laparoscopic cholecystectomy converted to open cholecystectomy. Postop day #1. Patient examined this morning at the bedside. Patient reports his pain is tolerable. Epidural is currently infusing at 7 mL an hour. He does complain of dizziness while laying in bed and when ambulating. His blood pressure has been stable. He reports urinary retention. He currently does not have a Costa catheter in place. He reports nausea this morning and an episode of emesis overnight. He states he had a few sips of liquids this morning for breakfast. WBC increased to 14.1. Creatinine up to 2.88 today. PHYSICAL EXAM: VITAL SIGNS: Reviewed. GENERAL: Well-developed in no acute distress. HEENT: No sclera icterus. Extraocular movements grossly intact. Moist buccal mucosa. Head is atraumatic, normocephalic. ABDOMEN: Soft. Mild distention. PROSPER with serosanguineous drainage. Dressing clean dry and intact. NEUROLOGIC: Alert and oriented. Cranial nerves II through XII grossly intact. ASSESSMENT: 1. Acute cholecystitis with history of gallstone pancreatitis PLAN: -Patient with urinary retention secondary to epidural infusion. Nursing to place costa catheter today. Increased creatinine may also be secondary to urinary retention. Will continue to monitor kidney function. Repeat in AM. Consult nephrology. Avoid nephrotoxic agents if possible. -Continue IV fluids. Increase rate to 125cc/hr -1L NS bolus x 1 now -Pain control. Continue epidural. -Continue clear liquid diet. Will change Reglan to scheduled every 6 hours due to nausea. Patient with allergy to Zofran. -Continue Zosyn. Monitor WBC. Repeat daily. Nurse practitioner note has been reviewed by physician. Signing provider agrees with the documented findings, assessment, and plan of care. Objective - Vital Signs Vital signs: Vital Signs Temp 97.0 F L 05/13/19 11:14 Pulse 69 05/13/19 11:14 Resp 16 05/13/19 11:14 BP 134/63 05/13/19 11:14 Pulse Ox 98 05/13/19 11:14 Intake & Output 05/12/19 05/13/19 05/13/19 18:59 06:59 18:59 Intake Total 2500 3000 Output Total 330 585 Balance 2170 2415 Intake: IV 2500 Intake, IV Titration 2400 Amount Piperacillin-Tazobactam 3 200 .375 gm In Sodium Chloride 0.9% 100 ml @ 25 mls/hr IVPB Q8HR [facility] Rx# :[id number] Sodium Chloride 0.9% 1, 1200 000 ml @ 100 mls/hr IV . Q10H [facility] Rx#:[id number] Sodium Chloride 0.9% 1, 1000 000 ml @ 250 mls/hr IV . Q4H [facility] Rx#:[id number] Oral 600 Output: Drainage 30 65 Right Abdomen 30 65 Urine 120 Emesis 400 Estimated Blood Loss 300 Other: Voiding Method Toilet Toilet Toilet Urinal Urinal # Voids 0 - Labs CBC & Chem 7: 05/13/19 08:00 05/13/19 08:00 Labs: Abnormal Lab Results - Last 24 Hours (Table) 05/12/19 05/12/19 05/13/19 Range/Units 16:59 20:03 06:57 WBC (3.8-10.6) k/uL RBC (4.30-5.90) m/uL Hgb (13.0-17.5) gm/dL Hct (39.0-53.0) % Neutrophils # (1.3-7.7) k/uL Lymphocytes # (1.0-4.8) k/uL Sodium (137-145) mmol/L Potassium (3.5-5.1) mmol/L BUN (9-20) mg/dL Creatinine (0.66-1.25) mg/dL Glucose (74-99) mg/dL POC Glucose (mg/dL) 225 H 243 H 228 H (75-99) mg/dL Calcium (8.4-10.2) mg/dL ALT (4-49) U/L Alkaline Phosphatase (38-126) U/L Albumin (3.5-5.0) g/dL 05/13/19 05/13/19 05/13/19 Range/Units 08:00 08:00 11:17 WBC 14.1 H (3.8-10.6) k/uL RBC 3.89 L (4.30-5.90) m/uL Hgb 10.9 L (13.0-17.5) gm/dL Hct 34.8 L (39.0-53.0) % Neutrophils # 12.7 H (1.3-7.7) k/uL Lymphocytes # 0.8 L (1.0-4.8) k/uL Sodium 135 L (137-145) mmol/L Potassium 5.4 H (3.5-5.1) mmol/L BUN 28 H (9-20) mg/dL Creatinine 2.88 H (0.66-1.25) mg/dL Glucose 210 H (74-99) mg/dL POC Glucose (mg/dL) 215 H (75-99) mg/dL Calcium 7.9 L (8.4-10.2) mg/dL ALT 101 H (4-49) U/L Alkaline Phosphatase 369 H (38-126) U/L Albumin 2.9 L (3.5-5.0) g/dL Microbiology - Last 24 Hours (Table) 05/11/19 13:05 Blood Culture - Preliminary Blood No Growth after 24 hours <Dario James - Last Filed: 05/13/19 16:59> Subjective As above. Patient doing better today. Was nauseated last night. Labs are improving. PROSPER serosanguineous. Increase activity. Reevaluate tomorrow. Objective - Vital Signs Vital signs: Vital Signs Temp 97.0 F L 05/13/19 11:14 Pulse 69 05/13/19 11:14 Resp 16 05/13/19 11:14 BP 134/63 05/13/19 11:14 Pulse Ox 98 05/13/19 11:14 Intake & Output 05/12/19 05/13/19 05/13/19 18:59 06:59 18:59 Intake Total 2500 3000 2700 Output Total 330 585 900 Balance 2170 2415 1800 Intake: IV 2500 Intake, IV Titration 2400 2100 Amount Piperacillin-Tazobactam 3 200 100 .375 gm In Sodium Chloride 0.9% 100 ml @ 25 mls/hr IVPB Q8HR [facility] Rx# :[id number] Sodium Chloride 0.9% 1, 1200 1000 000 ml @ 125 mls/hr IV . Q8H [facility] Rx#:[id number] Sodium Chloride 0.9% 1, 1000 000 ml @ 250 mls/hr IV . Q4H [facility] Rx#:[id number] Sodium Chloride 0.9% 1, 1000 000 ml @ 999 mls/hr IV . Q1H1M [facility] Rx#:[id number] Oral 600 600 Output: Drainage 30 65 Right Abdomen 30 65 Urine 120 900 Uretheral (Costa) 900 Emesis 400 Estimated Blood Loss 300 Other: Voiding Method Toilet Toilet Indwelling Catheter Urinal # Voids 0 - Labs CBC & Chem 7: 05/13/19 08:00 05/13/19 08:00 Labs: Abnormal Lab Results - Last 24 Hours (Table) 05/12/19 05/12/19 05/13/19 Range/Units 16:59 20:03 06:57 WBC (3.8-10.6) k/uL RBC (4.30-5.90) m/uL Hgb (13.0-17.5) gm/dL Hct (39.0-53.0) % Neutrophils # (1.3-7.7) k/uL Lymphocytes # (1.0-4.8) k/uL Sodium (137-145) mmol/L Potassium (3.5-5.1) mmol/L BUN (9-20) mg/dL Creatinine (0.66-1.25) mg/dL Glucose (74-99) mg/dL POC Glucose (mg/dL) 225 H 243 H 228 H (75-99) mg/dL Calcium (8.4-10.2) mg/dL ALT (4-49) U/L Alkaline Phosphatase (38-126) U/L Albumin (3.5-5.0) g/dL 05/13/19 05/13/19 05/13/19 Range/Units 08:00 08:00 11:17 WBC 14.1 H (3.8-10.6) k/uL RBC 3.89 L (4.30-5.90) m/uL Hgb 10.9 L (13.0-17.5) gm/dL Hct 34.8 L (39.0-53.0) % Neutrophils # 12.7 H (1.3-7.7) k/uL Lymphocytes # 0.8 L (1.0-4.8) k/uL Sodium 135 L (137-145) mmol/L Potassium 5.4 H (3.5-5.1) mmol/L BUN 28 H (9-20) mg/dL Creatinine 2.88 H (0.66-1.25) mg/dL Glucose 210 H (74-99) mg/dL POC Glucose (mg/dL) 215 H (75-99) mg/dL Calcium 7.9 L (8.4-10.2) mg/dL ALT 101 H (4-49) U/L Alkaline Phosphatase 369 H (38-126) U/L Albumin 2.9 L (3.5-5.0) g/dL Microbiology - Last 24 Hours (Table) 05/11/19 13:05 Blood Culture - Preliminary Blood No Growth after 48 hours Assessment and Plan (1) Choledocholithiasis with acute cholecystitis Current Visit: Yes Status: Acute Code(s): K80.42 - CALCULUS OF BILE DUCT W ACUTE CHOLECYSTITIS W/O OBSTRUCTION SNOMED Code(s): 56260463
[2019-05-13] MEDS ORDERED: ROPIVACAINE 250 MG in SODIUM CHLORIDE 0.9% 200 ML EPIDURAL PRN (13:00)
[2019-05-13 17:17] LABS: Glucose,Whole Blood 146 mg/dL (75-99)
[2019-05-13 20:04] LABS: Glucose,Whole Blood 150 mg/dL (75-99)
--- NOTE | 2019-05-13 20:40 | P.PN ---
Progress Note - Text Progress Note Date: 05/13/19 Chief Complaint: Abdominal pain History of presenting complaint: This is a pleasant 58-year-old patient of Dr. Adrian Monreal. Patient started feeling unwell from the ears. Started having right upper quadrant pain and discomfort achiness. Patient progressive to get worse. Started having some nausea and vomiting. He went and saw his family doctor about a week ago and was found to have elevated LFTs and bilirubin. Was given Zofran and referred for GI consultation. He was seen by the nurse practitioner at Dr. Sethi's office was office, this Monday -2 days ago and showing some improvement in her liver parameters. Computed tomography scan done as an outpatient did show distention of the gallbladder with the patient from retreat changes suggestive of acute cholecystitis. Patient's symptoms persisted. Patient did present to the ER. Ultrasound did confirm the same. I came to see the patient twice this morning at all been taken to the operating room. There from her laparoscopic was converted to open cholecystectomy. Gangrenous gallbladder was encountered. Patient has a PROSPER drain. Today-laying in bed. NG tube in place. PROSPER drain in place. Had some nausea earlier. at the bedside. . Epidural in place. Has a slight cough. Having some urinary retention Review of systems: Was done for constitutional, cardiovascular, GI, pulmonary. relevant finding as above Active Medications Hydrocodone Bitart/Acetaminophen (Marina 5-325) 1 each PO Q4HR PRN PRN Reason: Mild Pain Heparin Sodium (Porcine) (Heparin) 5,000 unit SQ Q8HR [facility] Last Admin: 05/13/19 16:17 Dose: 5,000 unit Documented by: Hydromorphone HCl (Dilaudid) 0.5 mg IVP Q3HR PRN PRN Reason: Moderate Pain Hydromorphone HCl (Dilaudid) 1 mg IVP Q3HR PRN PRN Reason: Severe Pain Sodium Chloride (Saline 0.9%) 1,000 mls @ 125 mls/hr IV .Q8H [facility] Last Admin: 05/13/19 15:02 Dose: 125 mls/hr Documented by: Piperacillin Sod/Tazobactam (Sod 3.375 gm/ Sodium Chloride) 100 mls @ 25 mls/hr IVPB Q8HR [facility] Last Admin: 05/13/19 16:16 Dose: 25 mls/hr Documented by: Ropivacaine 250 mg/ Sodium (Chloride) 250 mls @ 0 mls/hr EPIDURAL .Q0M PRN PRN Reason: Pain Control Last Admin: 05/13/19 13:41 Dose: 5 mls/hr Documented by: Insulin Aspart (Novolog) 0 unit SQ ACHS [facility]; Protocol Last Admin: 05/13/19 20:28 Dose: 1 unit Documented by: Metoclopramide HCl (Reglan) 10 mg IVP Q6HR [facility] Last Admin: 05/13/19 18:27 Dose: Not Given Documented by: Naloxone HCl (Narcan) 0.2 mg IV Q2M PRN PRN Reason: Opioid Reversal Pantoprazole Sodium (Protonix) 40 mg IV DAILY [facility] Last Admin: 05/13/19 08:16 Dose: 40 mg Documented by: Physical examination: VITAL SIGNS: 97, 69, 16, 134/63, 98% on room air GENERAL: Propped up in bed, awake, epidural in place EYES: Pupils equal. Conjunctiva normal. HEENT: External appearance of nose and ears normal, oral cavity grossly normal. NECK: JVD not raised; masses not palpable. HEART: First and second heart sounds are normal; no edema. LUNGS: Respiratory rate normal; clear to auscultation. ABDOMEN: Soft, tender, right PROSPER drain present, decreased bowel sounds liver spleen not palpable, no masses palpable. PSYCH: Alert and oriented x3; mood and affect normal. INVESTIGATIONS, reviewed in the clinical context: White count 14.1 hemoglobin 10.9 potassium 5.4 bun 28 creatine 2.88 Prior testing White count 7.8 hemoglobin 11.9 platelets 343 potassium 4.9 Bun 26 crit 1.89 Total bilirubin 1.4 AST 93 AST 192 Amylase 98 lipase 7:30 [id number], 92, 58 Abdominal ultrasound-Lai flow sludge and thickened colon, hepatic duct 4 mm positive Mauricio sign Computed tomography scan of the abdomen from May 10-gallbladder distended Assessment: -Acute gangrenous cholecystitis, followed by cholecystectomy patient requiring laparoscopically converted to open. Patient has a PROSPER drain -Obesity BMI 35.7 -Essential hypertension -Diabetes mellitus type 2 on oral hypoglycemic, uncontrolled with hypoglycemia -Acute kidney injury, possibly ATN from sepsis, new diagnosis -Hyperkalemia from renal failure -Hypoalbuminemia, acute phase reactant -Acute urinary outflow obstruction, postoperative Plan: Patient not in any renal toxic drugs. Patient is on normal saline. Keep the same. Add Flomax. Follow Accu-Cheks. .. Patient's surgeon is Dr. Malik GI is Dr. Jamia Cervantes
[2019-05-13] MEDS: TAMSULOSIN 0.4 MG CAP.ER.24H PO SCH (21:30)
[2019-05-14] MEDS: METOCLOPRAMIDE 5 MG/ML 2 ML VIAL IVP SCH ×4 (00:27→17:44)
[2019-05-14] MEDS: PIPERACILLIN-TAZOBACTAM 3.375 GM in SODIUM CHLORIDE 0.9% 100 ML IVPB SCH ×3 (00:27→17:04)
[2019-05-14] MEDS: SODIUM CHLORIDE 0.9% 1,000 ML IV SCH ×3 (05:31→11:43)
[2019-05-14 07:00] LABS: Glucose,Whole Blood 76 mg/dL (75-99)
[2019-05-14] MEDS: INSULIN ASPART (NovoLOG) 100 UNIT/ML VIAL SQ SCH ×4 (07:31→20:29)
[2019-05-14 07:46] LABS: Albumin 2.2 g/dL (3.5-5.0); Calcium 7.3 mg/dL (8.4-10.2); Potassium 4.6 mmol/L (3.5-5.1); Total Protein 4.9 g/dL (6.3-8.2)
[2019-05-14 07:54] LABS: Basophils # (A) 0.1 k/uL (0-0.2); Basophils % (A) 1 %; Eosinophils # (A) 0.1 k/uL (0-0.7); Eosinophils % (A) 1 %; HCT 28.1 % (39.0-53.0); HGB 9.7 gm/dL (13.0-17.5); Lymphocytes # (A) 0.9 k/uL (1.0-4.8); Lymphocytes % (A) 8 %; MCH 29.9 pg (25.0-35.0); MCHC 34.5 g/dL (31.0-37.0); MCV 86.5 fL (80.0-100.0); Mean Platelet Volume 8.8; Monocytes # (A) 0.6 k/uL (0-1.0); Monocytes % (A) 5 %; Neutrophils # (A) 9.1 k/uL (1.3-7.7); Neutrophils % (A) 84 %; Platelet Count 282 k/uL (150-450); RBC 3.25 m/uL (4.30-5.90); WBC 10.8 k/uL (3.8-10.6)
[2019-05-14] MEDS: PANTOPRAZOLE 40 MG/10 ML VIAL IV SCH (08:37)
[2019-05-14] MEDS ORDERED: ENOXAPARIN 40 MG/0.4 ML SYRINGE SQ SCH (09:00)
--- NOTE | 2019-05-14 11:18 | P.PN ---
<LeonardPadma Kai - Last Filed: 05/14/19 11:14> Subjective Progress Note Date: 05/14/19 CHIEF COMPLAINT: abdominal pain HISTORY OF PRESENT ILLNESS: 58-year-old male who is status post attempted laparoscopic cholecystectomy converted to open cholecystectomy. Postop day #2. Patient examined this morning at the bedside. Epidural is infusing. Patient reports abdominal pain but states it is tolerable. He is tolerating clear liquid diet. Reports nausea has resolved. No further episodes of emesis. Passing flatus this morning. Patient reports dizziness has resolved. He has not been ambulating in the room or in the hallways yet. WBC 10.8. Hemoglobin 9.7. Creatinine remains elevated at 3.03. PHYSICAL EXAM: VITAL SIGNS: Reviewed. GENERAL: Well-developed in no acute distress. HEENT: No sclera icterus. Extraocular movements grossly intact. Moist buccal mucosa. Head is atraumatic, normocephalic. ABDOMEN: Soft. Minimal distention. PROSPER with serosanguineous drainage. Dressing clean dry and intact. NEUROLOGIC: Alert and oriented. Cranial nerves II through XII grossly intact. ASSESSMENT: 1. Acute cholecystitis with history of gallstone pancreatitis 2. Urinary retention secondary to epidural infusion 3. Acute kidney injury PLAN: -Continue epidural. Continue So. Will DC both tomorrow (POD #3) -Continue IV fluids -Await nephrology consult -Pain control -Advance diet -Monitor PROSPER drain output -Continue IV antibiotics -IS 10 times an hour while awake -Increase activity as tolerated Nurse practitioner note has been reviewed by physician. Signing provider agrees with the documented findings, assessment, and plan of care. Objective - Vital Signs Vital signs: Vital Signs Temp 98.3 F 05/14/19 05:00 Pulse 82 05/14/19 05:00 Resp 18 05/14/19 05:00 BP 182/84 05/14/19 05:00 Pulse Ox 98 05/14/19 05:00 Intake & Output 05/13/19 05/14/19 05/14/19 18:59 06:59 18:59 Intake Total 2700 3710 Output Total 135 09 1494 Balance 1730 3695 -2400 Intake: Intake, IV Titration 2100 1790 Amount Piperacillin-Tazobactam 3 100 .375 gm In Sodium Chloride 0.9% 100 ml @ 25 mls/hr IVPB Q8HR [facility] Rx# :[id number] Ropivacaine 250 mg In 40 Sodium Chloride 0.9% 200 ml @ As Directed EPIDURAL .Q0M PRN Rx#:[id number] Sodium Chloride 0.9% 1, 1000 000 ml @ 125 mls/hr IV . Q8H [facility] Rx#:[id number] Sodium Chloride 0.9% 1, 1750 000 ml @ 150 mls/hr IV . Q6H40M [facility] Rx#:[id number] Sodium Chloride 0.9% 1, 1000 000 ml @ 999 mls/hr IV . Q1H1M [facility] Rx#:[id number] Oral 600 1920 Output: Drainage 70 15 Right Abdomen 70 15 Urine 900 2400 Uretheral (So) 900 Other: Voiding Method Indwelling Catheter Indwelling Catheter Indwelling Catheter # Voids 0 - Labs CBC & Chem 7: 05/14/19 06:48 05/14/19 06:48 Labs: Abnormal Lab Results - Last 24 Hours (Table) 05/13/19 05/13/19 05/13/19 Range/Units 11:17 17:04 20:03 WBC (3.8-10.6) k/uL RBC (4.30-5.90) m/uL Hgb (13.0-17.5) gm/dL Hct (39.0-53.0) % Neutrophils # (1.3-7.7) k/uL Lymphocytes # (1.0-4.8) k/uL Sodium (137-145) mmol/L BUN (9-20) mg/dL Creatinine (0.66-1.25) mg/dL POC Glucose (mg/dL) 215 H 146 H 150 H (75-99) mg/dL Calcium (8.4-10.2) mg/dL ALT (4-49) U/L Alkaline Phosphatase (38-126) U/L Total Protein (6.3-8.2) g/dL Albumin (3.5-5.0) g/dL 05/14/19 05/14/19 Range/Units 06:48 06:48 WBC 10.8 H (3.8-10.6) k/uL RBC 3.25 L (4.30-5.90) m/uL Hgb 9.7 L (13.0-17.5) gm/dL Hct 28.1 L (39.0-53.0) % Neutrophils # 9.1 H (1.3-7.7) k/uL Lymphocytes # 0.9 L (1.0-4.8) k/uL Sodium 134 L (137-145) mmol/L BUN 28 H (9-20) mg/dL Creatinine 3.03 H (0.66-1.25) mg/dL POC Glucose (mg/dL) (75-99) mg/dL Calcium 7.3 L (8.4-10.2) mg/dL ALT 53 H (4-49) U/L Alkaline Phosphatase 255 H (38-126) U/L Total Protein 4.9 L (6.3-8.2) g/dL Albumin 2.2 L (3.5-5.0) g/dL Microbiology - Last 24 Hours (Table) 05/11/19 13:05 Blood Culture - Preliminary Blood No Growth after 48 hours <Dario James - Last Filed: 05/14/19 16:37> Subjective As above. Patient with increased pain today. PROSPER remains serosanguineous. His white blood cell count normal. No fevers. Creatinine level has increased. Liver enzymes improved. We'll remove epidural. Begin IV Dilaudid. Reevaluate tomorrow. Appreciate nephrology consult. Objective - Vital Signs Vital signs: Vital Signs Temp 99 F 05/14/19 12:14 Pulse 91 05/14/19 12:14 Resp 16 05/14/19 12:14 BP 181/83 05/14/19 12:14 Pulse Ox 96 05/14/19 12:14 Intake & Output 05/13/19 05/14/19 05/14/19 18:59 06:59 18:59 Intake Total 2700 3710 1213.417 Output Total 635 71 4793 Balance 1730 5325 -1186.583 Intake: Intake, IV Titration 2100 1790 1213.417 Amount Piperacillin-Tazobactam 3 100 100 .375 gm In Sodium Chloride 0.9% 100 ml @ 25 mls/hr IVPB Q8HR [facility] Rx# :[id number] Ropivacaine 250 mg In 40 113.417 Sodium Chloride 0.9% 200 ml @ As Directed EPIDURAL .Q0M PRN Rx#:[id number] Sodium Chloride 0.9% 1, 1000 000 ml @ 125 mls/hr IV . Q8H [facility] Rx#:[id number] Sodium Chloride 0.9% 1, 1750 1000 000 ml @ 60 mls/hr IV . [id number] [facility] Rx#:[id number] Sodium Chloride 0.9% 1, 1000 000 ml @ 999 mls/hr IV . Q1H1M [facility] Rx#:[id number] Oral 600 1920 Output: Drainage 70 15 Right Abdomen 70 15 Urine 900 2400 Uretheral (So) 900 Other: Voiding Method Indwelling Catheter Indwelling Catheter Indwelling Catheter # Voids 0 - Labs CBC & Chem 7: 05/14/19 06:48 05/14/19 06:48 Labs: Abnormal Lab Results - Last 24 Hours (Table) 05/13/19 05/13/19 05/14/19 Range/Units 17:04 20:03 06:48 WBC 10.8 H (3.8-10.6) k/uL RBC 3.25 L (4.30-5.90) m/uL Hgb 9.7 L (13.0-17.5) gm/dL Hct 28.1 L (39.0-53.0) % Neutrophils # 9.1 H (1.3-7.7) k/uL Lymphocytes # 0.9 L (1.0-4.8) k/uL Sodium (137-145) mmol/L BUN (9-20) mg/dL Creatinine (0.66-1.25) mg/dL POC Glucose (mg/dL) 146 H 150 H (75-99) mg/dL Calcium (8.4-10.2) mg/dL ALT (4-49) U/L Alkaline Phosphatase (38-126) U/L Total Protein (6.3-8.2) g/dL Albumin (3.5-5.0) g/dL 05/14/19 05/14/19 Range/Units 06:48 11:29 WBC (3.8-10.6) k/uL RBC (4.30-5.90) m/uL Hgb (13.0-17.5) gm/dL Hct (39.0-53.0) % Neutrophils # (1.3-7.7) k/uL Lymphocytes # (1.0-4.8) k/uL Sodium 134 L (137-145) mmol/L BUN 28 H (9-20) mg/dL Creatinine 3.03 H (0.66-1.25) mg/dL POC Glucose (mg/dL) 165 H (75-99) mg/dL Calcium 7.3 L (8.4-10.2) mg/dL ALT 53 H (4-49) U/L Alkaline Phosphatase 255 H (38-126) U/L Total Protein 4.9 L (6.3-8.2) g/dL Albumin 2.2 L (3.5-5.0) g/dL Microbiology - Last 24 Hours (Table) 05/11/19 13:05 Blood Culture - Preliminary Blood No Growth after 72 hours Assessment and Plan (1) Choledocholithiasis with acute cholecystitis Current Visit: Yes Status: Acute Code(s): K80.42 - CALCULUS OF BILE DUCT W ACUTE CHOLECYSTITIS W/O OBSTRUCTION SNOMED Code(s): 64047048
[2019-05-14 11:31] LABS: Glucose,Whole Blood 165 mg/dL (75-99)
--- NOTE | 2019-05-14 13:22 | CONS ---
CONSULTATION REASON FOR CONSULT: Renal failure. HISTORY OF PRESENT ILLNESS: The patient is a 58-year-old male who was admitted to the hospital on 05/11/2019 with abdominal pain, is found to have cholecystitis and he is status post open cholecystectomy on 05/12/2019 with attempted laparoscopic cholecystectomy. The patient is noted to have a creatinine of 3.0, it was at 2.8 yesterday and 1.89 prior to that. The patient denies any prior history of kidney diseases. We do not have any previous labs available for comparison. The patient was also noted to have urine retention and he currently has an indwelling So catheter, 900 mL of urine was obtained on initial So placement. This was done yesterday. Currently patient is maintained on IV fluids. He is not on any KATHY inhibitors or NSAIDs. PAST MEDICAL HISTORY: Significant for hypertension, type 2 diabetes. SOCIAL HISTORY: Negative for smoking, drug abuse or alcohol abuse. MEDICATIONS PRIOR TO ADMISSION: Trulicity, Amaryl, omeprazole, Accupril, metformin. ALLERGIES: Allergies include ZOFRAN. PHYSICAL EXAMINATION: On examination, patient is comfortable, awake, alert, oriented x3, not in any acute distress. Blood pressure is elevated 181/83, heart rate 91 per minute. Patient is afebrile. EXAMINATION OF THE HEART: S1, S2. EXAMINATION OF THE LUNGS: Bilateral breath sounds are heard. ABDOMEN: Soft, tender. Examination of lower extremities shows edema trace bilaterally. BRICK POINTER EXAM: Grossly intact. LABS: Labs show sodium 134, potassium 4.6, chloride 107, BUN 28, creatinine 3.0, hemoglobin 9.7 g/dL. UA shows 3+ protein, 3+ glucose, trace blood. ASSESSMENT: 1. Acute kidney injury most likely acute tubular necrosis and underlying urine retention currently status post So catheter placement. The patient is not on any nephrotoxic medications. I will continue the So catheter. Continue with the IV fluids. Repeat labs in a.m. He did have proteinuria and hematuria and if renal function continues to worsen in spite of So placement and IV fluids, I will proceed with serological workup for any underlying acute GN. 2. Status post open cholecystectomy for cholecystitis. 3. Hypertension, partly pain related. Currently maintained on Norvasc, which we can increase to 10 mg daily as blood pressure remains elevated. PLAN: Continue with IV fluids. Increase Norvasc if blood pressure remains elevated. Repeat labs in a.m. and if renal function does not improve, proceed with serological workup given the hematuria and proteinuria. Thank you for this consultation. We will continue to follow the patient with you during his hospitalization. SILVIAL / MARTHAN: [id number] /
[2019-05-14] MEDS ORDERED: diphenhydrAMINE 50 MG/ML 1 ML VIAL IVP PRN (13:34)
--- NOTE | 2019-05-14 14:14 | P.PN ---
Progress Note - Text 05/14 642am 58-year-old male status post open cholecystectomy. Patient has an epidural catheter for postop pain control with the solution running at 5 mL an hour with a VAS of 4. No motor or sensory deficits noted. Plan to continue epidural infusion
[2019-05-14 16:56] LABS: Glucose,Whole Blood 156 mg/dL (75-99)
[2019-05-14] MEDS: TAMSULOSIN 0.4 MG CAP.ER.24H PO SCH (17:44)
[2019-05-14] MEDS: HYDROmorphone 1 MG/ML 1 ML SYRINGE IVP PRN ×2 (17:48→20:29)
[2019-05-14 19:58] LABS: Glucose,Whole Blood 136 mg/dL (75-99)
--- NOTE | 2019-05-14 23:44 | P.PN ---
Progress Note - Text Progress Note Date: 05/14/19 Chief Complaint: Abdominal pain History of presenting complaint: This is a pleasant 58-year-old patient of Dr. Adrian Monreal. Patient started feeling unwell from the ears. Started having right upper quadrant pain and discomfort achiness. Patient progressive to get worse. Started having some nausea and vomiting. He went and saw his family doctor about a week ago and was found to have elevated LFTs and bilirubin. Was given Zofran and referred for GI consultation. He was seen by the nurse practitioner at Dr. Sethi's office was office, this Monday -2 days ago and showing some improvement in her liver parameters. Computed tomography scan done as an outpatient did show distention of the gallbladder with the patient from retreat changes suggestive of acute cholecystitis. Patient's symptoms persisted. Patient did present to the ER. Ultrasound did confirm the same. I came to see the patient twice this morning at all been taken to the operating room. There from her laparoscopic was converted to open cholecystectomy. Gangrenous gallbladder was encountered. Patient has a PROSPER drain. Today-limproved abdominal pain. Epidural in place. No nausea vomiting. Positive flatus. Review of systems: Was done for constitutional, cardiovascular, GI, pulmonary. relevant finding as above Active Medications Hydrocodone Bitart/Acetaminophen ([place] 5-325) 1 each PO Q4HR PRN PRN Reason: Mild Pain Amlodipine Besylate (Norvasc) 5 mg PO DAILY [facility] Diphenhydramine HCl (Benadryl) 25 mg IVP Q6HR PRN PRN Reason: Allergy Symptoms Last Admin: 05/14/19 13:46 Dose: 25 mg Documented by: Enoxaparin Sodium (Lovenox) 30 mg SQ DAILY [facility] Hydromorphone HCl (Dilaudid) 0.5 mg IVP Q3HR PRN PRN Reason: Moderate Pain Hydromorphone HCl (Dilaudid) 1 mg IVP Q2HR PRN PRN Reason: SEVERE Pain Last Admin: 05/14/19 20:29 Dose: 1 mg Documented by: Piperacillin Sod/Tazobactam (Sod 3.375 gm/ Sodium Chloride) 100 mls @ 25 mls/hr IVPB Q8HR [facility] Last Admin: 05/14/19 17:04 Dose: 25 mls/hr Documented by: Ropivacaine 250 mg/ Sodium (Chloride) 250 mls @ 0 mls/hr EPIDURAL .Q0M PRN; Protocol PRN Reason: Pain Control Last Infusion: 05/14/19 12:22 Dose: 6 mls/hr Documented by: Sodium Chloride (Saline 0.9%) 1,000 mls @ 60 mls/hr IV .[id number] [facility] Last Admin: 05/14/19 11:43 Dose: 150 mls/hr Documented by: Insulin Aspart (Novolog) 0 unit SQ ACHS [facility]; Protocol Last Admin: 05/14/19 20:29 Dose: 1 unit Documented by: Metoclopramide HCl (Reglan) 10 mg IVP Q6HR [facility] Last Admin: 05/14/19 17:44 Dose: 10 mg Documented by: Naloxone HCl (Narcan) 0.2 mg IV Q2M PRN PRN Reason: Opioid Reversal Pantoprazole Sodium (Protonix) 40 mg PO DAILY [facility] Tamsulosin HCl (Flomax) 0.4 mg PO PC-SUPPER [facility] Last Admin: 05/14/19 17:44 Dose: 0.4 mg Documented by: Physical examination: VITAL SIGNS: 99, 91, 16, 181/83, 96% room air GENERAL: Propped up in bed, awake, epidural in place EYES: Pupils equal. Conjunctiva normal. HEENT: External appearance of nose and ears normal, oral cavity grossly normal. NECK: JVD not raised; masses not palpable. HEART: First and second heart sounds are normal; no edema. LUNGS: Respiratory rate normal; clear to auscultation. ABDOMEN: Soft, tender, right PROSPER drain present, decreased bowel sounds liver spleen not palpable, no masses palpable. PSYCH: Alert and oriented x3; mood and affect normal. INVESTIGATIONS, reviewed in the clinical context: white count 10.8 hemoglobin 9.7 potassium 4.6 bun 28 creatinine 3.03 Prior testing White count 7.8 hemoglobin 11.9 platelets 343 potassium 4.9 Bun 26 crit 1.89 Total bilirubin 1.4 AST 93 AST 192 Amylase 98 lipase 7:30 [id number], 92, 58 Abdominal ultrasound-Lai flow sludge and thickened colon, hepatic duct 4 mm positive Mauricio sign Computed tomography scan of the abdomen from May 10-gallbladder distended Assessment: -Acute gangrenous cholecystitis, followed by cholecystectomy patient requiring laparoscopically converted to open. Patient has a PROSPER drain -Obesity BMI 35.7 -Essential hypertension -Diabetes mellitus type 2 on oral hypoglycemic, uncontrolled with hypoglycemia -Acute kidney injury, possibly ATN from sepsis, worseningis -Hyperkalemia from renal failure, corrected -Hypoalbuminemia, acute phase reactant -Acute urinary outflow obstruction, postoperative Plan: renal function is worsening. We'll order an ultrasound. Order strict I's and O's repeat labs in the morning. Also get a nephrology opinion. Other medications to continue.epidural catheter in place.
[2019-05-14] MEDS ORDERED: cloNIDine 0.1 MG/24HR PATCH TRANSDERM SCH (23:45)
[2019-05-15] MEDS: METOCLOPRAMIDE 5 MG/ML 2 ML VIAL IVP SCH ×2 (00:16→05:44)
[2019-05-15] MEDS: PIPERACILLIN-TAZOBACTAM 3.375 GM in SODIUM CHLORIDE 0.9% 100 ML IVPB SCH ×4 (00:16→23:30)
[2019-05-15] MEDS: SODIUM CHLORIDE 0.9% 1,000 ML IV SCH ×2 (00:24→15:24)
[2019-05-15 06:59] LABS: Glucose,Whole Blood 112 mg/dL (75-99)
[2019-05-15] MEDS: INSULIN ASPART (NovoLOG) 100 UNIT/ML VIAL SQ SCH ×4 (07:17→20:28)
[2019-05-15 08:04] LABS: Basophils # (A) 0.1 k/uL (0-0.2); Basophils % (A) 1 %; Eosinophils # (A) 0.1 k/uL (0-0.7); Eosinophils % (A) 1 %; HGB 10.4 gm/dL (13.0-17.5); Hypochromasia Slight; Lymphocytes # (A) 0.7 k/uL (1.0-4.8); Lymphocytes % (A) 6 %; MCH 28.7 pg (25.0-35.0); MCHC 31.4 g/dL (31.0-37.0); MCV 91.4 fL (80.0-100.0); Mean Platelet Volume 7.3; Monocytes # (A) 0.5 k/uL (0-1.0); Monocytes % (A) 4 %; Neutrophils # (A) 10.5 k/uL (1.3-7.7); Neutrophils % (A) 87 %; Platelet Count 373 k/uL (150-450); RBC 3.61 m/uL (4.30-5.90); RDW 13.1 % (11.5-15.5)
[2019-05-15] MEDS: ENOXAPARIN 30 MG/0.3 ML SYRINGE SQ SCH (08:11)
[2019-05-15] MEDS: amLODIPine 5 MG TAB PO SCH (08:11)
[2019-05-15] MEDS: PANTOPRAZOLE 40 MG TABLET PO SCH (08:12)
[2019-05-15 08:29] LABS: Albumin 2.6 g/dL (3.5-5.0); Calcium 8.1 mg/dL (8.4-10.2); Potassium 5.3 mmol/L (3.5-5.1); Total Bilirubin 1.3 mg/dL (0.2-1.3); Total Protein 5.8 g/dL (6.3-8.2)
--- NOTE | 2019-05-15 08:35 | US ---
EXAMINATION TYPE: US kidneys/renal and bladder DATE OF EXAM: 05/15/2019 COMPARISON: NONE CLINICAL HISTORY: acute kidney injury. MARIA VICTORIA, cholecystectomy 05/12/19 EXAM MEASUREMENTS: Right Kidney: 10.7 x 5.7 x 5.4 cm Left Kidney: 12.7 x 6.3 x 5.3 cm Technical limitations, patient scanned in chair, did not want to move into bed Right Kidney: no evidence of hydronephrosis Left Kidney: no evidence of hydronephrosis Bladder: So Catheter , cannot be evaluated. IMPRESSION: 1. Normal limited retroperitoneal ultrasound.
[2019-05-15] MEDS ORDERED: METOCLOPRAMIDE 5 MG/ML 2 ML VIAL IVP PRN (10:53)
--- NOTE | 2019-05-15 10:54 | P.PN ---
<Padma Valle Kai - Last Filed: 05/15/19 10:49> Subjective Progress Note Date: 05/15/19 CHIEF COMPLAINT: abdominal pain HISTORY OF PRESENT ILLNESS: 58-year-old male who is status post attempted laparoscopic cholecystectomy converted to open cholecystectomy. Postop day #3. Patient examined this morning at the bedside. Epidural was discontinued yesterday. Patient reports minimal pain this morning. Tolerating full liquid diet. Denies nausea or vomiting. He does not want his diet advanced at this time. Costa intact with clear yellow urine. Creatinine remains elevated at 3.32. WBC 12.0. Patient has been using incentive spirometer. He has been up in the chair this morning. PHYSICAL EXAM: VITAL SIGNS: Reviewed. GENERAL: Well-developed in no acute distress. HEENT: No sclera icterus. Extraocular movements grossly intact. Moist buccal mucosa. Head is atraumatic, normocephalic. ABDOMEN: Soft. Minimal distention. PROSPER with serosanguineous drainage. Dressing clean dry and intact. NEUROLOGIC: Alert and oriented. Cranial nerves II through XII grossly intact. ASSESSMENT: 1. Acute cholecystitis with history of gallstone pancreatitis 2. Urinary retention secondary to epidural infusion 3. Acute kidney injury PLAN: -Pain control. Continue Slater PRN -Continue antibiotics. Monitor WBC -IS 10 times an hour while awake -Increase activity as tolerated -Continue full liquid diet. Patient does not want diet advanced at this time. -May have costa discontinued from surgical standpoint. However, will defer decision to remove urinary catheter to nephrology service Nurse practitioner note has been reviewed by physician. Signing provider agrees with the documented findings, assessment, and plan of care. Objective - Vital Signs Vital signs: Vital Signs Temp 98.1 F 05/15/19 05:00 Pulse 91 05/15/19 05:00 Resp 18 05/15/19 05:00 BP 186/84 05/15/19 05:00 Pulse Ox 95 05/15/19 05:00 Intake & Output 05/14/19 05/15/19 05/15/19 18:59 06:59 18:59 Intake Total 1213.417 820 Output Total 3900 1730 Balance -2686.583 -910 Intake: Intake, IV Titration 1213.417 820 Amount Piperacillin-Tazobactam 3 100 100 .375 gm In Sodium Chloride 0.9% 100 ml @ 25 mls/hr IVPB Q8HR [facility] Rx# :[id number] Ropivacaine 250 mg In 113.417 Sodium Chloride 0.9% 200 ml @ As Directed EPIDURAL .Q0M [facility] Rx#:[id number] Sodium Chloride 0.9% 1, 1000 720 000 ml @ 60 mls/hr IV . [id number] [facility] Rx#:[id number] Output: Drainage 30 Right Abdomen 30 Urine 3900 1700 Uretheral (Costa) 1700 Other: Voiding Method Indwelling Catheter Indwelling Catheter Indwelling Catheter # Voids 0 - Labs CBC & Chem 7: 05/15/19 07:21 05/15/19 07:21 Labs: Abnormal Lab Results - Last 24 Hours (Table) 05/14/19 05/14/19 05/14/19 Range/Units 11:29 16:54 19:56 WBC (3.8-10.6) k/uL RBC (4.30-5.90) m/uL Hgb (13.0-17.5) gm/dL Hct (39.0-53.0) % Neutrophils # (1.3-7.7) k/uL Lymphocytes # (1.0-4.8) k/uL Potassium (3.5-5.1) mmol/L BUN (9-20) mg/dL Creatinine (0.66-1.25) mg/dL Glucose (74-99) mg/dL POC Glucose (mg/dL) 165 H 156 H 136 H (75-99) mg/dL Calcium (8.4-10.2) mg/dL Alkaline Phosphatase (38-126) U/L Total Protein (6.3-8.2) g/dL Albumin (3.5-5.0) g/dL 05/15/19 05/15/19 05/15/19 Range/Units 06:58 07:21 07:21 WBC 12.0 H (3.8-10.6) k/uL RBC 3.61 L (4.30-5.90) m/uL Hgb 10.4 L (13.0-17.5) gm/dL Hct 33.0 L (39.0-53.0) % Neutrophils # 10.5 H (1.3-7.7) k/uL Lymphocytes # 0.7 L (1.0-4.8) k/uL Potassium 5.3 H (3.5-5.1) mmol/L BUN 27 H (9-20) mg/dL Creatinine 3.32 H (0.66-1.25) mg/dL Glucose 127 H (74-99) mg/dL POC Glucose (mg/dL) 112 H (75-99) mg/dL Calcium 8.1 L (8.4-10.2) mg/dL Alkaline Phosphatase 313 H (38-126) U/L Total Protein 5.8 L (6.3-8.2) g/dL Albumin 2.6 L (3.5-5.0) g/dL Microbiology - Last 24 Hours (Table) 05/11/19 13:05 Blood Culture - Preliminary Blood No Growth after 72 hours <Dario James - Last Filed: 05/15/19 11:22> Subjective As above. Patient says his pain is improved today. More active. PROSPER remains serosanguineous. Labs noted. Continue full liquids. Objective - Vital Signs Vital signs: Vital Signs Temp 98.1 F 05/15/19 05:00 Pulse 91 05/15/19 05:00 Resp 18 05/15/19 05:00 BP 186/84 05/15/19 05:00 Pulse Ox 95 05/15/19 05:00 Intake & Output 05/14/19 05/15/19 05/15/19 18:59 06:59 18:59 Intake Total 1213.417 820 Output Total 3900 1730 Balance -2686.583 -910 Intake: Intake, IV Titration 1213.417 820 Amount Piperacillin-Tazobactam 3 100 100 .375 gm In Sodium Chloride 0.9% 100 ml @ 25 mls/hr IVPB Q8HR [facility] Rx# :[id number] Ropivacaine 250 mg In 113.417 Sodium Chloride 0.9% 200 ml @ As Directed EPIDURAL .Q0M [facility] Rx#:[id number] Sodium Chloride 0.9% 1, 1000 720 000 ml @ 60 mls/hr IV . [id number] [facility] Rx#:[id number] Output: Drainage 30 Right Abdomen 30 Urine 3900 1700 Uretheral ([place]) 1700 Other: Voiding Method Indwelling Catheter Indwelling Catheter Indwelling Catheter # Voids 0 - Labs CBC & Chem 7: 05/15/19 07:21 05/15/19 07:21 Labs: Abnormal Lab Results - Last 24 Hours (Table) 05/14/19 05/14/19 05/14/19 Range/Units 11:29 16:54 19:56 WBC (3.8-10.6) k/uL RBC (4.30-5.90) m/uL Hgb (13.0-17.5) gm/dL Hct (39.0-53.0) % Neutrophils # (1.3-7.7) k/uL Lymphocytes # (1.0-4.8) k/uL Potassium (3.5-5.1) mmol/L BUN (9-20) mg/dL Creatinine (0.66-1.25) mg/dL Glucose (74-99) mg/dL POC Glucose (mg/dL) 165 H 156 H 136 H (75-99) mg/dL Calcium (8.4-10.2) mg/dL Alkaline Phosphatase (38-126) U/L Total Protein (6.3-8.2) g/dL Albumin (3.5-5.0) g/dL 05/15/19 05/15/19 05/15/19 Range/Units 06:58 07:21 07:21 WBC 12.0 H (3.8-10.6) k/uL RBC 3.61 L (4.30-5.90) m/uL Hgb 10.4 L (13.0-17.5) gm/dL Hct 33.0 L (39.0-53.0) % Neutrophils # 10.5 H (1.3-7.7) k/uL Lymphocytes # 0.7 L (1.0-4.8) k/uL Potassium 5.3 H (3.5-5.1) mmol/L BUN 27 H (9-20) mg/dL Creatinine 3.32 H (0.66-1.25) mg/dL Glucose 127 H (74-99) mg/dL POC Glucose (mg/dL) 112 H (75-99) mg/dL Calcium 8.1 L (8.4-10.2) mg/dL Alkaline Phosphatase 313 H (38-126) U/L Total Protein 5.8 L (6.3-8.2) g/dL Albumin 2.6 L (3.5-5.0) g/dL Microbiology - Last 24 Hours (Table) 05/11/19 13:05 Blood Culture - Preliminary Blood No Growth after 72 hours Assessment and Plan (1) Choledocholithiasis with acute cholecystitis Current Visit: Yes Status: Acute Code(s): K80.42 - CALCULUS OF BILE DUCT W ACUTE CHOLECYSTITIS W/O OBSTRUCTION SNOMED Code(s): 13770450
[2019-05-15 11:29] LABS: Glucose,Whole Blood 183 mg/dL (75-99)
[2019-05-15] MEDS: LABETALOL 200 MG TAB PO SCH ×3 (13:13→23:29)
[2019-05-15] MEDS: HYDROcodone/APAP 5-325MG 1 EACH TAB PO PRN ×3 (15:30→23:29)
[2019-05-15 17:12] LABS: Glucose,Whole Blood 217 mg/dL (75-99)
[2019-05-15] MEDS: TAMSULOSIN 0.4 MG CAP.ER.24H PO SCH (17:27)
[2019-05-15 19:05] LABS: Hepatitis B Surface AB- Quant 3.5 mIU/mL; Hepatitis B Surface Antibody Non-Reactive (Non-Reactive); Hepatitis B Surface Antigen Non-Reactive (Non-Reactive); Hepatitis C IgG Antibody Non-Reactive (Non-Reactive)
--- NOTE | 2019-05-15 19:44 | PN ---
PROGRESS NOTE Patient is seen for followup for acute kidney injury. He is maintained on IV fluids which were decreased yesterday secondary to increased edema. Patient has had good urine output. He did have urine retention and is currently with an indwelling So catheter. Serum creatinine is at 3.3 today, up from 3.0 yesterday. Serologies have been ordered, as patient is noted to have proteinuria and a small degree of hematuria as well. Currently no nephrotoxic medications on board. PHYSICAL EXAMINATION: On examination today, blood pressure was 186/84, heart rate of 91 per minute. Patient is afebrile. EXAMINATION OF THE HEART: S1 and S2. EXAMINATION OF LUNGS: Bilateral breath sounds are heard. ABDOMEN: Soft, tender. Examination of lower extremities shows edema 1+ bilaterally. [employer] exam is grossly intact. LABS: Hemoglobin 10.4, sodium 139, potassium 5.3, BUN 27, creatinine 3.3. ASSESSMENT: 1. Acute kidney injury; obstructive uropathy versus underlying acute GN, given the hematuria and proteinuria on the urinalysis. Serum creatinine is worse from yesterday. Basic serologies are sent out. I will continue with the So catheter and gentle IV hydration. Patient's blood pressure is elevated. He is also hypervolemic. However, his lungs are fairly clear. 2. Mild hyperkalemia associated with worsening renal failure. 3. Hypertension, partly volume-sensitive. 4. Status post open cholecystectomy. PLAN: Continue with the Norvasc and the labetalol p.o. Once patient is eating better, I will discontinue the IV fluids. Send serologies to rule out underlying acute GN. Continue to avoid nephrotoxic agents. MMODL / IJN: [id number] /
[2019-05-15 20:04] LABS: Glucose,Whole Blood 223 mg/dL (75-99)
[2019-05-15 20:45] LABS: Anti-DNA, DS unit <1.0 IU/mL; DNA Double-Stranded NEGATIVE (NEGATIVE)
--- NOTE | 2019-05-15 23:46 | P.PN ---
Progress Note - Text Progress Note Date: 05/15/19 Chief Complaint: Abdominal pain History of presenting complaint: This is a pleasant 58-year-old patient of Dr. Adrian Monreal. Patient started feeling unwell from the ears. Started having right upper quadrant pain and discomfort achiness. Patient progressive to get worse. Started having some nausea and vomiting. He went and saw his family doctor about a week ago and was found to have elevated LFTs and bilirubin. Was given Zofran and referred for GI consultation. He was seen by the nurse practitioner at Dr. Sethi's office was office, this Monday -2 days ago and showing some improvement in her liver parameters. Computed tomography scan done as an outpatient did show distention of the gallbladder with the patient from retreat changes suggestive of acute cholecystitis. Patient's symptoms persisted. Patient did present to the ER. Ultrasound did confirm the same. r laparoscopic was converted to open cholecystectomy. Gangrenous gallbladder was encountered. Patient has a PROSPER drain. Today-limproved abdominal pain. No nausea vomiting. Has positive flatus. Has been out of bed. s. Review of systems: Was done for constitutional, cardiovascular, GI, pulmonary. relevant finding as above Active Medications Hydrocodone Bitart/Acetaminophen ([place] 5-325) 1 each PO Q4HR PRN PRN Reason: Mild Pain Last Admin: 05/15/19 23:29 Dose: 1 each Documented by: Amlodipine Besylate (Norvasc) 5 mg PO DAILY [facility] Last Admin: 05/15/19 08:11 Dose: 5 mg Documented by: Diphenhydramine HCl (Benadryl) 25 mg IVP Q6HR PRN PRN Reason: Allergy Symptoms Last Admin: 05/14/19 13:46 Dose: 25 mg Documented by: Enoxaparin Sodium (Lovenox) 30 mg SQ DAILY [facility] Last Admin: 05/15/19 08:11 Dose: 30 mg Documented by: Hydromorphone HCl (Dilaudid) 0.5 mg IVP Q3HR PRN PRN Reason: Moderate Pain Last Admin: 05/15/19 00:24 Dose: 0.5 mg Documented by: Hydromorphone HCl (Dilaudid) 1 mg IVP Q2HR PRN PRN Reason: SEVERE Pain Last Admin: 05/14/19 20:29 Dose: 1 mg Documented by: Piperacillin Sod/Tazobactam (Sod 3.375 gm/ Sodium Chloride) 100 mls @ 25 mls/hr IVPB Q8HR [facility] Last Admin: 05/15/19 23:30 Dose: 25 mls/hr Documented by: Ropivacaine 250 mg/ Sodium (Chloride) 250 mls @ 0 mls/hr EPIDURAL .Q0M PRN; Protocol PRN Reason: Pain Control Last Infusion: 05/14/19 12:22 Dose: 6 mls/hr Documented by: Sodium Chloride (Saline 0.9%) 1,000 mls @ 60 mls/hr IV .[id number] [facility] Last Admin: 05/15/19 15:24 Dose: 60 mls/hr Documented by: Insulin Aspart (Novolog) 0 unit SQ ACHS [facility]; Protocol Last Admin: 05/15/19 20:28 Dose: 4 unit Documented by: Labetalol HCl (Trandate) 200 mg PO TID [facility] Last Admin: 05/15/19 23:29 Dose: 200 mg Documented by: Metoclopramide HCl (Reglan) 10 mg IVP Q6HR PRN PRN Reason: Nausea Naloxone HCl (Narcan) 0.2 mg IV Q2M PRN PRN Reason: Opioid Reversal Pantoprazole Sodium (Protonix) 40 mg PO DAILY [facility] Last Admin: 05/15/19 08:12 Dose: 40 mg Documented by: Tamsulosin HCl (Flomax) 0.4 mg PO PC-SUPPER [facility] Last Admin: 05/15/19 17:27 Dose: 0.4 mg Documented by: Physical examination: VITAL SIGNS: 98.2, 100, 17, 180/90, 100% room air GENERAL: Propped up in bed, awake, EYES: Pupils equal. Conjunctiva normal. HEENT: External appearance of nose and ears normal, oral cavity grossly normal. NECK: JVD not raised; masses not palpable. HEART: First and second heart sounds are normal; no edema. LUNGS: Respiratory rate normal; clear to auscultation. ABDOMEN: Soft, tender, right PROSPER drain present, decreased bowel sounds liver spleen not palpable, no masses palpable. PSYCH: Alert and oriented x3; mood and affect normal. INVESTIGATIONS, reviewed in the clinical context: White count 12 hemoglobin 10.4 potassium 5.3 bun 27 creatinine 3.32 Prior testing White count 7.8 hemoglobin 11.9 platelets 343 potassium 4.9 Bun 26 crit 1.89 Total bilirubin 1.4 AST 93 AST 192 Amylase 98 lipase 7:30 [id number], 92, 58 Abdominal ultrasound-Lai flow sludge and thickened colon, hepatic duct 4 mm positive Mauricio sign Computed tomography scan of the abdomen from May 10-gallbladder distended Assessment: -Acute gangrenous cholecystitis, followed by cholecystectomy patient requiring laparoscopically converted to open. Patient has a PROSPER drain -Obesity BMI 35.7 -Essential hypertension -Diabetes mellitus type 2 on oral hypoglycemic, uncontrolled with hypoglycemia -Acute kidney injury, possibly ATN from sepsis, worseningis -Hyperkalemia from renal failure, -Hypoalbuminemia, acute phase reactant -Acute urinary outflow obstruction, postoperative Plan: Overall doing better. Total renal function not improving. No real offensive drugs. Getting IV fluids. Follow with nephrology. Diet has been advanced. Patient has been ambulatory.
[2019-05-16 07:08] LABS: Glucose,Whole Blood 157 mg/dL (75-99)
[2019-05-16 07:38] LABS: Basophils % (A) 0 %; Eosinophils # (A) 0.2 k/uL (0-0.7); Eosinophils % (A) 2 %; HCT 27.4 % (39.0-53.0); HGB 9.2 gm/dL (13.0-17.5); Lymphocytes # (A) 0.7 k/uL (1.0-4.8); Lymphocytes % (A) 8 %; MCH 29.3 pg (25.0-35.0); MCHC 33.4 g/dL (31.0-37.0); MCV 87.8 fL (80.0-100.0); Mean Platelet Volume 7.8; Monocytes # (A) 0.4 k/uL (0-1.0); Monocytes % (A) 4 %; Neutrophils # (A) 7.7 k/uL (1.3-7.7); Neutrophils % (A) 85 %; Platelet Count 357 k/uL (150-450); RBC 3.12 m/uL (4.30-5.90); WBC 9.1 k/uL (3.8-10.6)
[2019-05-16 07:44] LABS: Albumin 2.3 g/dL (3.5-5.0); Calcium 7.9 mg/dL (8.4-10.2); Potassium 4.8 mmol/L (3.5-5.1); Total Bilirubin 0.9 mg/dL (0.2-1.3); Total Protein 5.3 g/dL (6.3-8.2)
[2019-05-16] MEDS: INSULIN ASPART (NovoLOG) 100 UNIT/ML VIAL SQ SCH ×4 (08:08→20:39)
[2019-05-16] MEDS: amLODIPine 5 MG TAB PO SCH (08:09)
[2019-05-16] MEDS: ENOXAPARIN 30 MG/0.3 ML SYRINGE SQ SCH (08:09)
[2019-05-16] MEDS: PANTOPRAZOLE 40 MG TABLET PO SCH (08:10)
[2019-05-16] MEDS: LABETALOL 200 MG TAB PO SCH ×3 (08:10→20:39)
[2019-05-16] MEDS: SODIUM CHLORIDE 0.9% 1,000 ML IV SCH (08:23)
[2019-05-16] MEDS: PIPERACILLIN-TAZOBACTAM 3.375 GM in SODIUM CHLORIDE 0.9% 100 ML IVPB SCH ×2 (08:23→17:04)
[2019-05-16 11:19] LABS: Glucose,Whole Blood 229 mg/dL (75-99)
--- NOTE | 2019-05-16 12:28 | P.PN ---
<LeonardPadma Kai - Last Filed: 05/16/19 12:28> Subjective Progress Note Date: 05/16/19 CHIEF COMPLAINT: abdominal pain HISTORY OF PRESENT ILLNESS: 58-year-old male who is status post attempted laparoscopic cholecystectomy converted to open cholecystectomy. Postop day #3. Patient examined this morning at the bedside. present. Patient reports his pain is tolerable. Tolerating diet. Denies nausea or vomiting. Reports BM. Patient has been out of bed and sat in the chair. Creatinine 3.16 today. So catheter intact. PHYSICAL EXAM: VITAL SIGNS: Reviewed. GENERAL: Well-developed in no acute distress. HEENT: No sclera icterus. Extraocular movements grossly intact. Moist buccal mucosa. Head is atraumatic, normocephalic. ABDOMEN: Soft. Nondistended. PROSPER with serosanguineous drainage. Dressing clean dry and intact. NEUROLOGIC: Alert and oriented. Cranial nerves II through XII grossly intact. ASSESSMENT: 1. Acute cholecystitis with history of gallstone pancreatitis 2. Urinary retention secondary to epidural infusion 3. Acute kidney injury PLAN: -Pain control. Continue [place] PRN -Continue antibiotics. Monitor WBC -IS 10 times an hour while awake -Increase activity as tolerated -Continue current diet -Urinary catheter management per nephrology service Nurse practitioner note has been reviewed by physician. Signing provider agrees with the documented findings, assessment, and plan of care. Objective - Vital Signs Vital signs: Vital Signs Temp 98.6 F 05/16/19 11:36 Pulse 80 05/16/19 11:36 Resp 17 05/16/19 11:36 BP 191/82 05/16/19 11:36 Pulse Ox 98 05/16/19 11:36 Intake & Output 05/15/19 05/16/19 05/16/19 18:59 06:59 18:59 Intake Total 580 1240 Output Total 20 Balance 580 1220 Intake: Intake, IV Titration 580 400 Amount Piperacillin-Tazobactam 3 100 100 .375 gm In Sodium Chloride 0.9% 100 ml @ 25 mls/hr IVPB Q8HR [facility] Rx# :[id number] Sodium Chloride 0.9% 1, 480 300 000 ml @ 60 mls/hr IV . [id number] [facility] Rx#:[id number] Oral 840 Output: Drainage 20 Right Abdomen 20 Other: Voiding Method Indwelling Catheter Indwelling Catheter Indwelling Catheter # Voids 1 - Labs CBC & Chem 7: 05/16/19 06:48 05/16/19 06:47 Labs: Abnormal Lab Results - Last 24 Hours (Table) 05/15/19 05/15/19 05/15/19 Range/Units 07:21 17:11 20:02 RBC (4.30-5.90) m/uL Hgb (13.0-17.5) gm/dL Hct (39.0-53.0) % Lymphocytes # (1.0-4.8) k/uL Chloride (98-107) mmol/L Carbon Dioxide (22-30) mmol/L BUN (9-20) mg/dL Creatinine (0.66-1.25) mg/dL Glucose (74-99) mg/dL POC Glucose (mg/dL) 217 H 223 H (75-99) mg/dL Calcium (8.4-10.2) mg/dL Alkaline Phosphatase (38-126) U/L Total Protein (6.3-8.2) g/dL Albumin (3.5-5.0) g/dL ALLA Screen POSITIVE H (NEGATIVE) 05/16/19 05/16/19 05/16/19 Range/Units 06:47 06:48 07:05 RBC 3.12 L (4.30-5.90) m/uL Hgb 9.2 L (13.0-17.5) gm/dL Hct 27.4 L (39.0-53.0) % Lymphocytes # 0.7 L (1.0-4.8) k/uL Chloride 108 H (98-107) mmol/L Carbon Dioxide 21 L (22-30) mmol/L BUN 28 H (9-20) mg/dL Creatinine 3.16 H (0.66-1.25) mg/dL Glucose 148 H (74-99) mg/dL POC Glucose (mg/dL) 157 H (75-99) mg/dL Calcium 7.9 L (8.4-10.2) mg/dL Alkaline Phosphatase 258 H (38-126) U/L Total Protein 5.3 L (6.3-8.2) g/dL Albumin 2.3 L (3.5-5.0) g/dL ALLA Screen (NEGATIVE) 01/16/20 Range/Units 11:18 RBC (4.30-5.90) m/uL Hgb (13.0-17.5) gm/dL Hct (39.0-53.0) % Lymphocytes # (1.0-4.8) k/uL Chloride (98-107) mmol/L Carbon Dioxide (22-30) mmol/L BUN (9-20) mg/dL Creatinine (0.66-1.25) mg/dL Glucose (74-99) mg/dL POC Glucose (mg/dL) 229 H (75-99) mg/dL Calcium (8.4-10.2) mg/dL Alkaline Phosphatase (38-126) U/L Total Protein (6.3-8.2) g/dL Albumin (3.5-5.0) g/dL ALLA Screen (NEGATIVE) Microbiology - Last 24 Hours (Table) 05/11/19 13:05 Blood Culture - Preliminary Blood No Growth after 96 hours <Dario Jaems - Last Filed: 05/16/19 18:29> Subjective As above. Patient's creatinine today is slightly improved. He is ambulating. Tolerating diet. PROSPER remained serosanguineous. Objective - Vital Signs Vital signs: Vital Signs Temp 98.6 F 05/16/19 11:36 Pulse 80 05/16/19 11:36 Resp 17 05/16/19 11:36 BP 191/82 05/16/19 11:36 Pulse Ox 98 05/16/19 11:36 Intake & Output 05/15/19 05/16/19 05/16/19 18:59 06:59 18:59 Intake Total 580 1240 580 Output Total 20 Balance 580 1220 580 Intake: Intake, IV Titration 580 400 580 Amount Piperacillin-Tazobactam 3 100 100 100 .375 gm In Sodium Chloride 0.9% 100 ml @ 25 mls/hr IVPB Q8HR [facility] Rx# :[id number] Sodium Chloride 0.9% 1, 480 300 480 000 ml @ 60 mls/hr IV . [id number] [facility] Rx#:[id number] Oral 840 Output: Drainage 20 Right Abdomen 20 Other: Voiding Method Indwelling Catheter Indwelling Catheter Urinal # Voids 1 - Labs CBC & Chem 7: 05/16/19 06:48 05/16/19 06:47 Labs: Abnormal Lab Results - Last 24 Hours (Table) 05/15/19 05/15/19 05/16/19 Range/Units 07:21 20:02 06:47 RBC (4.30-5.90) m/uL Hgb (13.0-17.5) gm/dL Hct (39.0-53.0) % Lymphocytes # (1.0-4.8) k/uL Chloride 108 H (98-107) mmol/L Carbon Dioxide 21 L (22-30) mmol/L BUN 28 H (9-20) mg/dL Creatinine 3.16 H (0.66-1.25) mg/dL Glucose 148 H (74-99) mg/dL POC Glucose (mg/dL) 223 H (75-99) mg/dL Calcium 7.9 L (8.4-10.2) mg/dL Alkaline Phosphatase 258 H (38-126) U/L Total Protein 5.3 L (6.3-8.2) g/dL Albumin 2.3 L (3.5-5.0) g/dL ALLA Screen POSITIVE H (NEGATIVE) 05/16/19 05/16/19 05/16/19 Range/Units 06:48 07:05 11:18 RBC 3.12 L (4.30-5.90) m/uL Hgb 9.2 L (13.0-17.5) gm/dL Hct 27.4 L (39.0-53.0) % Lymphocytes # 0.7 L (1.0-4.8) k/uL Chloride (98-107) mmol/L Carbon Dioxide (22-30) mmol/L BUN (9-20) mg/dL Creatinine (0.66-1.25) mg/dL Glucose (74-99) mg/dL POC Glucose (mg/dL) 157 H 229 H (75-99) mg/dL Calcium (8.4-10.2) mg/dL Alkaline Phosphatase (38-126) U/L Total Protein (6.3-8.2) g/dL Albumin (3.5-5.0) g/dL ALLA Screen (NEGATIVE) 05/16/19 Range/Units 16:49 RBC (4.30-5.90) m/uL Hgb (13.0-17.5) gm/dL Hct (39.0-53.0) % Lymphocytes # (1.0-4.8) k/uL Chloride (98-107) mmol/L Carbon Dioxide (22-30) mmol/L BUN (9-20) mg/dL Creatinine (0.66-1.25) mg/dL Glucose (74-99) mg/dL POC Glucose (mg/dL) 265 H (75-99) mg/dL Calcium (8.4-10.2) mg/dL Alkaline Phosphatase (38-126) U/L Total Protein (6.3-8.2) g/dL Albumin (3.5-5.0) g/dL ALLA Screen (NEGATIVE) Microbiology - Last 24 Hours (Table) 05/11/19 13:05 Blood Culture - Preliminary Blood No Growth after 120 hours Assessment and Plan (1) Choledocholithiasis with acute cholecystitis Current Visit: Yes Status: Acute Code(s): K80.42 - CALCULUS OF BILE DUCT W ACUTE CHOLECYSTITIS W/O OBSTRUCTION SNOMED Code(s): 59171826
[2019-05-16 12:53] LABS: ANA Pattern Homogeneous; ANA Pattern 2 Nucleolar
[2019-05-16] MEDS: HYDROcodone/APAP 5-325MG 1 EACH TAB PO PRN ×2 (13:00→18:02)
[2019-05-16 14:06] LABS: C-ANCA <1:20 Titer (<1:20)
--- NOTE | 2019-05-16 16:00 | PN ---
PROGRESS NOTE Patient is seen for followup for acute kidney injury. The patient remains on IV fluids. He is feeling slightly better from surgical standpoint. Serum creatinine is slightly improved from 3.3 to 3.1 today. Patient has an indwelling So catheter. He continues to have good urine output. From the serologies, ALLA turned out to be positive with titer at 1:160. All other serologies, including complements, were normal. Hepatitis serologies were negative as well. There is a previous history of abnormal paraproteins. Details are not available. I will check urine and serum immunofixation as well. Patient has had a bone marrow biopsy previously, but was not diagnosed with multiple myeloma. PHYSICAL EXAMINATION: On examination today, blood pressure was 167/89, heart rate 76 per minute. He is afebrile. EXAMINATION OF THE HEART: S1 and S2. EXAMINATION OF LUNGS: Bilateral breath sounds are heard. ABDOMEN: Soft, tender. Not in any acute distress. Examination of lower extremities shows edema 1+ bilaterally. [employer] exam is grossly intact. LABS: Sodium 137, potassium 4.8, chloride 108, BUN 28, creatinine 3.16, hemoglobin 9.2 g/dL. ASSESSMENT: 1. Acute kidney injury, acute tubular necrosis versus underlying acute GN versus secondary to paraproteinemia. Check urine and serum immunofixation. ALLA was noted to be positive. Patient will likely need a kidney biopsy. However, this can be done as outpatient. Renal function is slightly improved from yesterday. I will decrease the IV fluids and patient is encouraged to increase his oral p.o. intake and he will continue to avoid nephrotoxic agents. 2. Status post open cholecystectomy. 3. Urine retention, currently with indwelling So catheter. 4. Hypertension, maintained on Norvasc. Expect improvement with further decreasing the saline. PLAN: Check serum and urine immunofixation. Decrease IV fluids. Discontinue So catheter and we can do a voiding trial. Repeat labs in a.m. Patient can likely be discharged tomorrow. He will need followup as outpatient with plans for possible kidney biopsy as outpatient. MMODL / IJN: [id number] /
[2019-05-16 16:51] LABS: Glucose,Whole Blood 265 mg/dL (75-99)
[2019-05-16] MEDS: TAMSULOSIN 0.4 MG CAP.ER.24H PO SCH (18:02)
[2019-05-16 20:06] LABS: Glucose,Whole Blood 190 mg/dL (75-99)
[2019-05-16] MEDS: DOCUSATE 100 MG CAP PO SCH (20:39)
--- NOTE | 2019-05-16 21:56 | P.PN ---
Progress Note - Text Progress Note Date: 05/16/19 Chief Complaint: Abdominal pain History of presenting complaint: This is a pleasant 58-year-old patient of Dr. Adrian Monreal. Patient started feeling unwell from the ears. Started having right upper quadrant pain and discomfort achiness. Patient progressive to get worse. Started having some nausea and vomiting. He went and saw his family doctor about a week ago and was found to have elevated LFTs and bilirubin. Was given Zofran and referred for GI consultation. He was seen by the nurse practitioner at Dr. Sethi's office was office, this Monday -2 days ago and showing some improvement in her liver parameters. Computed tomography scan done as an outpatient did show distention of the gallbladder with the patient from retreat changes suggestive of acute cholecystitis. Patient's symptoms persisted. Patient did present to the ER. Ultrasound did confirm the same. r laparoscopic was converted to open cholecystectomy. Gangrenous gallbladder was encountered. Patient has a PROSPER drain. Today-walked in the hallway with a walker. Passing flatus. Diet advance regular. No bowel movement. No nausea vomiting. Feels better. Review of systems: Was done for constitutional, cardiovascular, GI, pulmonary. relevant finding as above Active Medications Hydrocodone Bitart/Acetaminophen ([place] 5-325) 1 each PO Q4HR PRN PRN Reason: Mild Pain Last Admin: 05/16/19 18:02 Dose: 1 each Documented by: Amlodipine Besylate (Norvasc) 5 mg PO DAILY [facility] Last Admin: 05/16/19 08:09 Dose: 5 mg Documented by: Diphenhydramine HCl (Benadryl) 25 mg IVP Q6HR PRN PRN Reason: Allergy Symptoms Last Admin: 05/14/19 13:46 Dose: 25 mg Documented by: Docusate Sodium (Colace) 100 mg PO BID [facility] Last Admin: 05/16/19 20:39 Dose: 100 mg Documented by: Enoxaparin Sodium (Lovenox) 30 mg SQ DAILY [facility] Last Admin: 05/16/19 08:09 Dose: 30 mg Documented by: Hydromorphone HCl (Dilaudid) 0.5 mg IVP Q3HR PRN PRN Reason: Moderate Pain Last Admin: 05/15/19 00:24 Dose: 0.5 mg Documented by: Hydromorphone HCl (Dilaudid) 1 mg IVP Q2HR PRN PRN Reason: SEVERE Pain Last Admin: 05/14/19 20:29 Dose: 1 mg Documented by: Piperacillin Sod/Tazobactam (Sod 3.375 gm/ Sodium Chloride) 100 mls @ 25 mls/hr IVPB Q8HR [facility] Last Admin: 05/16/19 17:04 Dose: 25 mls/hr Documented by: Sodium Chloride (Saline 0.9%) 1,000 mls @ 40 mls/hr IV .Q24H [facility] Last Admin: 05/16/19 08:23 Dose: 60 mls/hr Documented by: Insulin Aspart (Novolog) 0 unit SQ ACHS [facility]; Protocol Last Admin: 05/16/19 20:39 Dose: 3 unit Documented by: Labetalol HCl (Trandate) 200 mg PO TID [facility] Last Admin: 05/16/19 20:39 Dose: 200 mg Documented by: Metoclopramide HCl (Reglan) 10 mg IVP Q6HR PRN PRN Reason: Nausea Naloxone HCl (Narcan) 0.2 mg IV Q2M PRN PRN Reason: Opioid Reversal Pantoprazole Sodium (Protonix) 40 mg PO DAILY [facility] Last Admin: 05/16/19 08:10 Dose: 40 mg Documented by: Tamsulosin HCl (Flomax) 0.4 mg PO PC-SUPPER [facility] Last Admin: 05/16/19 18:02 Dose: 0.4 mg Documented by: Physical examination: VITAL SIGNS: 98.6, 80, 17, 160-/77 and descending percent room air GENERAL: Propped up in bed, awake, EYES: Pupils equal. Conjunctiva normal. HEENT: External appearance of nose and ears normal, oral cavity grossly normal. NECK: JVD not raised; masses not palpable. HEART: First and second heart sounds are normal; no edema. LUNGS: Respiratory rate normal; clear to auscultation. ABDOMEN: Soft, minimally tender,, pulse is present, liver spleen not palpable, no masses palpable. PSYCH: Alert and oriented x3; mood and affect normal. INVESTIGATIONS, reviewed in the clinical context: White count 9.1 hemoglobin 9.2 potassium 4.8 bun 28 crit was 3.16 Prior testing White count 7.8 hemoglobin 11.9 platelets 343 potassium 4.9 Bun 26 crit 1.89 Total bilirubin 1.4 AST 93 AST 192 Amylase 98 lipase 7:30 [id number], 92, 58 Abdominal ultrasound-Lai flow sludge and thickened colon, hepatic duct 4 mm positive Mauricio sign Computed tomography scan of the abdomen from May 10-gallbladder distended Assessment: -Acute gangrenous cholecystitis, followed by cholecystectomy patient requiring laparoscopically converted to open. Patient has a PROSPER drain -Obesity BMI 35.7 -Essential hypertension -Diabetes mellitus type 2 on oral hypoglycemic, uncontrolled with hypoglycemia -Acute kidney injury, possibly ATN from sepsis, started to plateau -Hyperkalemia from renal failure, -Hypoalbuminemia, acute phase reactant -Acute urinary outflow obstruction, postoperative Plan: Clinically doing better. Has passed flatus. Creatinine is started for control. Repeat labs tomorrow. Encouraged to ambulate more.
[2019-05-17] MEDS: HYDROcodone/APAP 5-325MG 1 EACH TAB PO PRN ×3 (00:13→15:42)
[2019-05-17] MEDS: PIPERACILLIN-TAZOBACTAM 3.375 GM in SODIUM CHLORIDE 0.9% 100 ML IVPB SCH ×3 (00:13→15:43)
[2019-05-17] MEDS: SODIUM CHLORIDE 0.9% 1,000 ML IV SCH ×2 (03:41→07:57)
[2019-05-17 07:00] LABS: Glucose,Whole Blood 149 mg/dL (75-99)
[2019-05-17 07:39] LABS: Basophils % (A) 1 %; Eosinophils # (A) 0.2 k/uL (0-0.7); Eosinophils % (A) 3 %; HCT 28.2 % (39.0-53.0); HGB 9.1 gm/dL (13.0-17.5); Lymphocytes # (A) 0.7 k/uL (1.0-4.8); Lymphocytes % (A) 10 %; MCH 28.4 pg (25.0-35.0); MCHC 32.4 g/dL (31.0-37.0); MCV 87.7 fL (80.0-100.0); Mean Platelet Volume 7.8; Monocytes # (A) 0.3 k/uL (0-1.0); Monocytes % (A) 5 %; Neutrophils # (A) 5.2 k/uL (1.3-7.7); Neutrophils % (A) 80 %; Platelet Count 315 k/uL (150-450); RBC 3.22 m/uL (4.30-5.90); RDW 13.1 % (11.5-15.5); WBC 6.6 k/uL (3.8-10.6)
[2019-05-17 07:53] LABS: Calcium 7.9 mg/dL (8.4-10.2); Potassium 4.7 mmol/L (3.5-5.1)
[2019-05-17] MEDS: INSULIN ASPART (NovoLOG) 100 UNIT/ML VIAL SQ SCH ×2 (07:58→12:12)
[2019-05-17] MEDS: ENOXAPARIN 30 MG/0.3 ML SYRINGE SQ SCH (07:59)
[2019-05-17] MEDS: LABETALOL 200 MG TAB PO SCH ×2 (07:59→15:43)
[2019-05-17] MEDS: PANTOPRAZOLE 40 MG TABLET PO SCH (07:59)
[2019-05-17] MEDS: DOCUSATE 100 MG CAP PO SCH (07:59)
[2019-05-17] MEDS: amLODIPine 5 MG TAB PO SCH (07:59)
--- NOTE | 2019-05-17 10:23 | P.PN ---
<Padma Valle - Last Filed: 05/17/19 10:20> Subjective Progress Note Date: 05/17/19 CHIEF COMPLAINT: abdominal pain HISTORY OF PRESENT ILLNESS: 58-year-old male who is status post attempted laparoscopic cholecystectomy converted to open cholecystectomy. Patient examined this morning at the bedside. present. Patient reports his pain is tolerable. Tolerating diet. Denies nausea or vomiting. Reports BM. So catheter has been discontinued and patient is voiding without difficulty. He has been ambulating in the hallway. Vital signs are stable. He is afebrile. WBC 6.6. Hemoglobin 9.1. Creatinine 2.91. PHYSICAL EXAM: VITAL SIGNS: Reviewed. GENERAL: Well-developed in no acute distress. HEENT: No sclera icterus. Extraocular movements grossly intact. Moist buccal mucosa. Head is atraumatic, normocephalic. ABDOMEN: Soft. Nondistended. PROSPER with serous drainage. Dressing clean dry and intact. NEUROLOGIC: Alert and oriented. Cranial nerves II through XII grossly intact. ASSESSMENT: 1. Acute cholecystitis with history of gallstone pancreatitis 2. Urinary retention secondary to epidural infusion 3. Acute kidney injury PLAN: -Pain control. Continue Hector PRN -IS 10 times an hour while awake -Increase activity as tolerated -Continue current diet -Discontinue PROSPER drain -Change abdominal optifoam dressing -Patient may be discharged home today from a surgical standpoint. Follow up with Dr. James outpatient Nurse practitioner note has been reviewed by physician. Signing provider agrees with the documented findings, assessment, and plan of care. Objective - Vital Signs Vital signs: Vital Signs Temp 98.1 F 05/17/19 05:00 Pulse 79 05/17/19 05:00 Resp 16 05/17/19 05:00 BP 167/81 05/17/19 05:00 Pulse Ox 98 05/17/19 05:00 Intake & Output 05/16/19 05/17/19 05/17/19 18:59 06:59 18:59 Intake Total 580 2210 Output Total 10 1000 Balance 580 2200 -1000 Intake: Intake, IV Titration 580 360 Amount Piperacillin-Tazobactam 3 100 .375 gm In Sodium Chloride 0.9% 100 ml @ 25 mls/hr IVPB Q8HR [facility] Rx# :[id number] Sodium Chloride 0.9% 1, 480 360 000 ml @ 40 mls/hr IV . Q24H [facility] Rx#:[id number] Oral 1850 Output: Drainage 10 Right Abdomen 10 Urine 1000 Other: Voiding Method Urinal Urinal Toilet Urinal # Voids 2 # Bowel Movements 1 - Labs CBC & Chem 7: 05/17/19 06:51 05/17/19 06:51 Labs: Abnormal Lab Results - Last 24 Hours (Table) 05/16/19 05/16/19 05/16/19 Range/Units 11:18 16:49 20:04 RBC (4.30-5.90) m/uL Hgb (13.0-17.5) gm/dL Hct (39.0-53.0) % Lymphocytes # (1.0-4.8) k/uL Sodium (137-145) mmol/L Chloride (98-107) mmol/L Carbon Dioxide (22-30) mmol/L BUN (9-20) mg/dL Creatinine (0.66-1.25) mg/dL Glucose (74-99) mg/dL POC Glucose (mg/dL) 229 H 265 H 190 H (75-99) mg/dL Calcium (8.4-10.2) mg/dL 05/17/19 05/17/19 05/17/19 Range/Units 06:51 06:51 06:58 RBC 3.22 L (4.30-5.90) m/uL Hgb 9.1 L (13.0-17.5) gm/dL Hct 28.2 L (39.0-53.0) % Lymphocytes # 0.7 L (1.0-4.8) k/uL Sodium 136 L (137-145) mmol/L Chloride 109 H (98-107) mmol/L Carbon Dioxide 19 L (22-30) mmol/L BUN 26 H (9-20) mg/dL Creatinine 2.91 H (0.66-1.25) mg/dL Glucose 148 H (74-99) mg/dL POC Glucose (mg/dL) 149 H (75-99) mg/dL Calcium 7.9 L (8.4-10.2) mg/dL Microbiology - Last 24 Hours (Table) 05/11/19 13:05 Blood Culture - Preliminary Blood No Growth after 120 hours <Dario James - Last Filed: 05/17/19 16:07> Subjective As above. Patient improving gradually. Drain was removed today. Patient to be discharged this evening. Follow-up one week. Objective - Vital Signs Vital signs: Vital Signs Temp 98 F 05/17/19 11:58 Pulse 94 05/17/19 11:58 Resp 20 05/17/19 11:58 BP 174/83 05/17/19 11:58 Pulse Ox 100 05/17/19 11:58 Intake & Output 05/16/19 05/17/19 05/17/19 18:59 06:59 18:59 Intake Total 580 2210 420 Output Total 10 1000 Balance 580 2200 -580 Intake: Intake, IV Titration 580 360 420 Amount Piperacillin-Tazobactam 3 100 100 .375 gm In Sodium Chloride 0.9% 100 ml @ 25 mls/hr IVPB Q8HR [facility] Rx# :[id number] Sodium Chloride 0.9% 1, 480 360 320 000 ml @ 40 mls/hr IV . Q24H [facility] Rx#:[id number] Oral 1850 Output: Drainage 10 Right Abdomen 10 Urine 1000 Other: Voiding Method Urinal Urinal Toilet Urinal # Voids 2 # Bowel Movements 1 - Labs CBC & Chem 7: 05/17/19 06:51 05/17/19 06:51 Labs: Abnormal Lab Results - Last 24 Hours (Table) 05/16/19 05/16/19 05/17/19 Range/Units 16:49 20:04 06:51 RBC 3.22 L (4.30-5.90) m/uL Hgb 9.1 L (13.0-17.5) gm/dL Hct 28.2 L (39.0-53.0) % Lymphocytes # 0.7 L (1.0-4.8) k/uL Sodium (137-145) mmol/L Chloride (98-107) mmol/L Carbon Dioxide (22-30) mmol/L BUN (9-20) mg/dL Creatinine (0.66-1.25) mg/dL Glucose (74-99) mg/dL POC Glucose (mg/dL) 265 H 190 H (75-99) mg/dL Calcium (8.4-10.2) mg/dL 05/17/19 05/17/19 05/17/19 Range/Units 06:51 06:58 11:13 RBC (4.30-5.90) m/uL Hgb (13.0-17.5) gm/dL Hct (39.0-53.0) % Lymphocytes # (1.0-4.8) k/uL Sodium 136 L (137-145) mmol/L Chloride 109 H (98-107) mmol/L Carbon Dioxide 19 L (22-30) mmol/L BUN 26 H (9-20) mg/dL Creatinine 2.91 H (0.66-1.25) mg/dL Glucose 148 H (74-99) mg/dL POC Glucose (mg/dL) 149 H 210 H (75-99) mg/dL Calcium 7.9 L (8.4-10.2) mg/dL Microbiology - Last 24 Hours (Table) 05/11/19 13:05 Blood Culture - Final Blood No Growth after 144 hours Assessment and Plan (1) Choledocholithiasis with acute cholecystitis Current Visit: Yes Status: Acute Code(s): K80.42 - CALCULUS OF BILE DUCT W ACUTE CHOLECYSTITIS W/O OBSTRUCTION SNOMED Code(s): 30950582
[2019-05-17 11:16] LABS: Glucose,Whole Blood 210 mg/dL (75-99)
[2019-05-17 11:59] VITALS: BP 174/83; PULSE 94; RESP 20; TEMP 98
--- NOTE | 2019-05-17 12:38 | PN ---
PROGRESS NOTE Patient is seen for followup for acute kidney injury, postoperatively. His serum creatinine peaked at 3.3. Patient is maintained on IV fluids. However, his renal function did not improve much and due to presence of hematuria and proteinuria serologies were ordered, which came back as positive ALLA. All other serologies and complements are normal. 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 Urine immunofixation is pending. The patient also had an element of urine retention for which he had a So catheter which was discontinued and he has been able to void. Patient is status post open cholecystectomy this admission. PHYSICAL EXAMINATION: On examination today, blood pressure is 167/81, heart rate 79 per minute, he is afebrile. Examination of the heart S1, S2. Examination of the lungs, bilateral breath sounds are heard. Decreased breath sounds at bases. Abdomen is soft, nontender. Examination of the lower extremities shows edema 1+ bilaterally. [employer] exam grossly intact. LABS: Show sodium of 136, potassium 4.7, chloride 109, CO2 is 19, BUN 26, creatinine 2.9. ASSESSMENT: 1. Acute kidney injury, acute tubular necrosis and evidence of urine retention currently status post removal of So catheter with a no significant postvoid residual. Patient has been voiding well. There was concern for possible underlying GN and therefore serologies were ordered. ALLA was positive and patient also had a small IgG lambda paraprotein on serum immunofixation. This will be tested further as outpatient. I have discussed kidney biopsy with the patient and we will plan for possible kidney biopsy down the road as outpatient. He can be discharged from nephrological standpoint at this time. 2. Hypertension, maintained on Norvasc, somewhat improved post discontinuation of IV fluids. 3. Acute cholecystitis, status post cholecystectomy. 4. History of benign prostatic hypertrophy. PLAN: Okay for discharge. Follow up as outpatient in about one week's time. Repeat labs as outpatient and we will further discuss the kidney biopsy as outpatient. MMODL / IJN: [id number] /
[2019-05-17 17:34] LABS: Glucose,Whole Blood 180 mg/dL (75-99)
--- NOTE | 2019-05-24 18:42 | P.DS ---
Providers Date of admission: 05/13/19 14:14 Expected date of discharge: 05/17/19 Attending physician: Hi Antunez Consults: 05/11/19 14:19 Consult Physician Urgent Consulting Provider: Dario James Consult Reason/Comments: Acute cholecystitis Do you want consulting provider notified?: Yes 05/13/19 12:36 Consult Physician Routine Consulting Provider: Jose Mead Consult Reason/Comments: MARIA VICTORIA Do you want consulting provider notified?: Yes Primary care physician: Salvatore Campbell [facility] Course: Chief Complaint: Abdominal pain History of presenting complaint: This is a pleasant 58-year-old patient of Dr. Adrian Monreal. Patient started feeling unwell from the ears. Started having right upper quadrant pain and discomfort achiness. Patient progressive to get worse. Started having some nausea and vomiting. He went and saw his family doctor about a week ago and was found to have elevated LFTs and bilirubin. Was given Zofran and referred for GI consultation. He was seen by the nurse practitioner at Dr. Sethi's office was office, this Monday -2 days ago and showing some improvement in her liver parameters. Computed tomography scan done as an outpatient did show distention of the gallbladder with the patient from retreat changes suggestive of acute cholecystitis. Patient's symptoms persisted. Patient did present to the ER. Ultrasound did confirm the same. Taken down to the operating room-laparoscopic was converted to open cholecystectomy. Gangrenous gallbladder was encountered. PROSPER drain was placed.. Patient had acute kidney injury. And urine retention. 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 ALLA was positive. Also had some small IgG lambda paraprotein. Patient will need possible kidney biopsy as an outpatient. Postoperatively patient did well. Day of discharge PROSPER drain is was discontinued. Eating better. Cleared by surgery. And nephrology. Consultation: Dr. James from general surgery Physical examination: VITAL SIGNS: 98, 94, 20, 164/81, 98% room air GENERAL: Propped up in bed, awake, EYES: Pupils equal. Conjunctiva normal. HEENT: External appearance of nose and ears normal, oral cavity grossly normal. NECK: JVD not raised; masses not palpable. HEART: First and second heart sounds are normal; no edema. LUNGS: Respiratory rate normal; clear to auscultation. ABDOMEN: Soft, minimally tender,, bowel sounds present, liver spleen not palpable, no masses palpable. PSYCH: Alert and oriented x3; mood and affect normal. INVESTIGATIONS, reviewed in the clinical context: White count 6.6 hemoglobin 9.1 depression 4.7 bun 26 creatinine 2.91 Prior testing White count 7.8 hemoglobin 11.9 platelets 343 potassium 4.9 Bun 26 crit 1.89 Total bilirubin 1.4 AST 93 AST 192 Amylase 98 lipase 7:30 [id number], 92, 58 Abdominal ultrasound-Lai flow sludge and thickened colon, hepatic duct 4 mm positive Mauricio sign Computed tomography scan of the abdomen from May 10-gallbladder distended Assessment: -Acute gangrenous cholecystitis, followed by cholecystectomy patient requiring laparoscopically converted to open. Patient has a PROSPER drain -Obesity BMI 35.7 -Essential hypertension -Diabetes mellitus type 2 on oral hypoglycemic, uncontrolled with hypoglycemia -Acute kidney injury, possibly ATN from sepsis, started to plateau. Possible outpatient biopsy -Hyperkalemia from renal failure, -Hypoalbuminemia, acute phase reactant -Acute urinary outflow obstruction, postoperative Disposition: Home Patient Condition at Discharge: Fair Plan - Discharge Summary New Discharge Prescriptions: New Hydrocodone/Acetaminophen [[place] 5-325] 1 tab PO Q6HR PRN 3 Days #12 tab PRN Reason: Pain Amoxicillin/Potassium Clav [Augmentin 875-125 Tablet] 1 tab PO Q12HR #14 tab Tamsulosin [Flomax] 0.4 mg PO PC-SUPPER #30 cap.er.24h amLODIPine [Norvasc] 5 mg PO DAILY #30 tab Labetalol [Trandate] 200 mg PO TID #90 tab Continue Omeprazole 20 mg PO DAILY Glimepiride [Amaryl] 4 mg PO BID Dulaglutide [Trulicity] 0.75 mg SQ WE Discontinued metFORMIN HCL 1,000 mg PO BID Quinapril HCl [Accupril] 20 mg PO DAILY Discharge Medication List Dulaglutide [Trulicity] 0.75 mg SQ WE 05/11/19 [History] Glimepiride [Amaryl] 4 mg PO BID 05/11/19 [History] Omeprazole 20 mg PO DAILY 05/11/19 [History] Amoxicillin/Potassium Clav [Augmentin 875-125 Tablet] 1 tab PO Q12HR #14 tab 05/17/19 [Rx] Hydrocodone/Acetaminophen [[place] 5-325] 1 tab PO Q6HR PRN 3 Days #12 tab 05/17/19 [Rx] Labetalol [Trandate] 200 mg PO TID #90 tab 05/17/19 [Rx] Tamsulosin [Flomax] 0.4 mg PO PC-SUPPER #30 cap.er.24h 05/17/19 [Rx] amLODIPine [Norvasc] 5 mg PO DAILY #30 tab 05/17/19 [Rx] Follow up Appointment(s)/Referral(s): Dario James MD [Medical Doctor] - 1 Week Lisa Wilson MD [STAFF PHYSICIAN] - 1 Week Salvatore Peterson DO [Primary Care Provider] - 1-2 days Patient Instructions/Handouts: Labetalol (By mouth), Hydrocodone/Acetaminophen (By mouth), Amoxicillin/Clavulanate Potassium (By mouth), Amlodipine (By mouth), Tamsulosin (By mouth), Puncture Wound (DC), Low Fat Diet (DC), Acute Wound Care (DC), Wound Healing and Your Diet (DC), Acute Wounds (DC), Open Cholecystectomy (DC) Activity/Diet/Wound Care/Special Instructions: bmp - 3 days Discharge Disposition: HOME SELF-CARE
== END 2019-05-17 17:27 | disposition home or self-care (01) | DRG 853 ==
LOC: EC 12:37 → 5NMEDONC 14:25 → OBSVTOIN 05-13 14:14
PROVIDERS: ADMIT Hospitalist; ATTEND Hospitalist
PROC: 0FJ44ZZ Inspection of Gallbladder, Percutaneous Endoscopic Approach (ICD-10-PCS; principal; 2019-05-12 10:30)
PROC: 0FT40ZZ Resection of Gallbladder, Open Approach (ICD-10-PCS; principal; 2019-05-12 10:30)
DX: A41.9 Sepsis, unspecified organism (principal); K85.10 Biliary acute pancreatitis without necrosis or infection; N17.0 Acute kidney failure with tubular necrosis; K80.42 Calculus of bile duct with acute cholecystitis without obstruction; N13.8 Other obstructive and reflux uropathy; R65.20 Severe sepsis without septic shock; E11.649 Type 2 diabetes mellitus with hypoglycemia without coma; K82.A1 Gangrene of gallbladder in cholecystitis; E88.09 Other disorders of plasma-protein metabolism, not elsewhere classified; E66.9 Obesity, unspecified; E87.5 Hyperkalemia; E87.70 Fluid overload, unspecified; I10 Essential (primary) hypertension; N40.1 Benign prostatic hyperplasia with lower urinary tract symptoms; R31.9 Hematuria, unspecified; R79.89 Other specified abnormal findings of blood chemistry; R80.9 Proteinuria, unspecified; R74.8 Abnormal levels of other serum enzymes; R76.8 Other specified abnormal immunological findings in serum; K21.9 Gastro-esophageal reflux disease without esophagitis; R11.0 Nausea; Z79.84 Long term (current) use of oral hypoglycemic drugs; Z79.899 Other long term (current) drug therapy; Z68.35 Body mass index [BMI] 35.0-35.9, adult; Z88.8 Allergy status to other drugs, medicaments and biological substances; Z86.14 Personal history of Methicillin resistant Staphylococcus aureus infection; Z53.31 Laparoscopic surgical procedure converted to open procedure
CPT/HCPCS: 36415; 76705; 76770; 80048; 80053; 81001; 82150; 83605; 83690; 85025; 86038; 86039; 86160; 86225; 86255; 86334; 86335; 86706; 86803; 87040; 87340; 88304; 96365; 99285

== ENCOUNTER → 2019-06-04 | Outpatient (CLI) | payer BC ==
[2019-06-04 17:27] LABS: Basophils % (A) 0 %; Eosinophils # (A) 0.2 k/uL (0-0.7); Eosinophils % (A) 3 %; HCT 32.3 % (39.0-53.0); HGB 10.7 gm/dL (13.0-17.5); Lymphocytes # (A) 1.1 k/uL (1.0-4.8); Lymphocytes % (A) 24 %; MCH 28.2 pg (25.0-35.0); MCHC 33.3 g/dL (31.0-37.0); MCV 84.8 fL (80.0-100.0); Mean Platelet Volume 7.7; Monocytes # (A) 0.3 k/uL (0-1.0); Monocytes % (A) 7 %; Neutrophils % (A) 63 %; Platelet Count 247 k/uL (150-450); RBC 3.81 m/uL (4.30-5.90); RDW 13.9 % (11.5-15.5); WBC 4.7 k/uL (3.8-10.6)
[2019-06-04 17:42] LABS: Partial Thromboplastin Time 23.2 sec (22.0-30.0)
[2019-06-05 01:39] LABS: African American GFR (CKD) 37.2 (60.0-200.0); Anion Gap 7.9 mmol/L (4.00-12.00); Carbon Dioxide 26.1 mmol/L (21.6-31.8); Non-African American GFR(CKD) 32.1 (60.0-200.0); Potassium 5.3 mmol/L (3.5-5.5)
== END | disposition home or self-care (01) ==
LOC: LABWHC1 16:41
PROVIDERS: ATTEND Internal Medicine Nephrology
DX: N17.9 Acute kidney failure, unspecified (principal)
CPT/HCPCS: 36415; 80051; 82565; 84520; 85025; 85610; 85730; 86850; 86900; 86901

== ENCOUNTER 2019-06-06 08:46 | Day surgery (SDC) | payer BC ==
[2019-06-06 09:10] VITALS: RESP 20; TEMP 98.4
[2019-06-06] MEDS ORDERED: ALPRAZolam 0.5 MG TAB PO STA (09:14)
[2019-06-06 09:53] VITALS: PULSE 98
[2019-06-06 10:04] VITALS: BP 192/85
== END 2019-06-06 10:20 | disposition home or self-care (01) ==
LOC: RADPROMAIN 08:46
PROVIDERS: ATTEND Internal Medicine Nephrology
DX: N17.9 Acute kidney failure, unspecified (principal); Z53.8 Procedure and treatment not carried out for other reasons
CPT/HCPCS: 36415; 82947

== ENCOUNTER → 2019-06-06 | Outpatient (CLI) | payer BC ==
--- NOTE | 2019-06-06 14:39 | CT ---
EXAMINATION TYPE: CT brain wo con DATE OF EXAM: 06/06/2019 COMPARISON: None HISTORY: Blurred vision, headache and dizziness since cholecystectomy 05-12-19. CT DLP: 1199 mGycm Automated exposure control for dose reduction was used. Head CT performed using departmental protocol FINDINGS: There is no hemorrhage or hydrocephalus. Cerebral vascular calcifications are present. Cortical atrop hy is likely age-related. White matter low-attenuation is nonspecific. Calvarium is intact. Mucosal d isease is present within the maxillary sinuses bilaterally. Orbits show symmetric appearance. Mastoid air cells are well aerated. IMPRESSION: Sinus disease. Age-related changes of atrophy and probable chronic small vessel ischemia. IMPRESSION:
== END | disposition home or self-care (01) ==
LOC: RADCTMAIN 13:34
PROVIDERS: ATTEND Internal Medicine Nephrology
DX: G31.9 Degenerative disease of nervous system, unspecified (principal); H53.9 Unspecified visual disturbance
CPT/HCPCS: 70450

== ENCOUNTER → 2019-06-22 | Outpatient (CLI) | payer BC ==
[2019-06-22 12:09] LABS: Basophils % (A) 1 %; Eosinophils # (A) 0.1 k/uL (0-0.7); Eosinophils % (A) 2 %; HCT 33.2 % (39.0-53.0); HGB 11.7 gm/dL (13.0-17.5); Lymphocytes # (A) 0.9 k/uL (1.0-4.8); Lymphocytes % (A) 20 %; MCH 28.8 pg (25.0-35.0); MCHC 35.4 g/dL (31.0-37.0); MCV 81.5 fL (80.0-100.0); Mean Platelet Volume 8.5; Monocytes # (A) 0.3 k/uL (0-1.0); Monocytes % (A) 7 %; Neutrophils % (A) 68 %; Platelet Count 174 k/uL (150-450); RBC 4.07 m/uL (4.30-5.90); RDW 13.2 % (11.5-15.5); WBC 4.4 k/uL (3.8-10.6)
[2019-06-22 12:11] LABS: INR 0.9 (<1.2); Partial Thromboplastin Time 22.9 sec (22.0-30.0); Prothrombin Time 9.8 sec (9.0-12.0)
[2019-06-22 17:05] LABS: African American GFR (CKD) 30.4 (60.0-200.0); Anion Gap 5.3 mmol/L (4.00-12.00); Carbon Dioxide 25.7 mmol/L (21.6-31.8); Non-African American GFR(CKD) 26.2 (60.0-200.0)
== END ==
LOC: LABWHC1 11:38
PROVIDERS: ATTEND Internal Medicine Nephrology
DX: N17.9 Acute kidney failure, unspecified (principal)
CPT/HCPCS: 36415; 80051; 82565; 84520; 85025; 85610; 85730

== ENCOUNTER → 2019-06-25 | Day surgery (SDC) | payer BC ==
[~2019-06-25] MED LIST: ALPRAZolam 0.5 MG TAB PO STA
[2019-06-25 09:31] VITALS: TEMP 97.9
[2019-06-25 10:10] VITALS: RESP 16
--- NOTE | 2019-06-25 13:34 | CT ---
DATE OF EXAM: 06/25/2019 COMPARISON: NONE CT DLP: 2000 mGycm HISTORY: Renal failure PROCEDURE: Maximal barrier technique was utilized. Hand hygiene obtained with soap and water. After informed consent, the skin overlying a suitable path to the left kidney lower pole cortex was localiz ed using CT guidance, the skin was prepped and draped. Lidocaine was used for local anesthesia. A s kin daija made with a scalpel. Using CT guidance, a 17-gauge needle was advanced into in position at the lateral and inferior cortex of the left kidney where coaxial placement of an 18-gauge needle was used and core biopsy obtained. Three passes made in total. Hemostasis was achieved. There was no i mmediate complication and patient remained in stable condition. Specimen submitted to Pathology. IMPRESSION: Status post CT guided core biopsy of left renal cortex, pathology pending. This procedur e performed by the undersigned.
[2019-06-25 14:45] VITALS: BP 135/67; PULSE 65
== END ==
LOC: RADPROMAIN 08:45
PROVIDERS: ATTEND Nurse Practitioner Family
DX: I12.9 Hypertensive chronic kidney disease with stage 1 through stage 4 chronic kidney disease, or unspecified chronic kidney disease (principal); E11.22 Type 2 diabetes mellitus with diabetic chronic kidney disease; N18.3 Chronic kidney disease, stage 3 (moderate)
CPT/HCPCS: 36415; 77012; 82947; 86850; 86900; 86901

== ENCOUNTER 2022-04-11 09:07 | Day surgery (SDC) | payer BC ==
[2022-04-07 15:32] VITALS: BMI 36.9
[~2022-04-11 09:07] MED LIST changes: +ACETAMINOPHEN TAB 500 MG TAB PO PRN; -ALPRAZolam 0.5 MG TAB PO STA; +DEXAMETHASONE SOD PHOSPHATE 4 MG/ML 1 ML VIAL IV ONE; +HEPARIN SODIUM,PORCINE/PF 5,000 UNIT/0.5 ML SYRINGE SQ PRN; +HYDROmorphone 0.5 MG/0.5 ML SYRINGE IVP PRN; +LACTATED RINGERS 1,000 ML IV SCH; +MIDAZOLAM 2 MG/2 ML VIAL IV PRN; +SCOPOLAMINE 1 MG/72 HR PATCH TRANSDERM ONE; +ceFAZolin 3 GM in SODIUM CHLORIDE 0.9% 100 ML IVPB PRN
--- NOTE | 2022-04-11 09:58 | P.GSHP ---
History of Present Illness H&P Date: 04/11/22 Chief Complaint: Renal failure 61-year-old male here today for peritoneal dialysis catheter insertion. Patient last seen in September. Patient with fluid retention. Worsening kidney function. Patient is seeing [facility] for possible transplant. Past Medical History Past Medical History: Diabetes Mellitus, Hyperlipidemia, Hypertension History of Any Multi-Drug Resistant Organisms: MRSA Date of last positivie culture/infection: 2002 MDRO Source:: groin Past Surgical History: Cholecystectomy, Hernia Repair Past Anesthesia/Blood Transfusion Reactions: No Reported Reaction Past Psychological History: No Psychological Hx Reported Smoking Status: Never smoker Past Alcohol Use History: None Reported Past Drug Use History: None Reported - Past Family History Father Family Medical History: Cancer, Diabetes Mellitus, Hypertension Additional Family Medical History / Comment(s): esophageal CA Mother Family Medical History: Coronary Artery Disease (CAD), CVA/TIA, Diabetes Mellitus, Hypertension, Renal Disease Medications and Allergies Home Medications Medication Instructions Recorded Confirmed Type carvediloL [Coreg] 6.25 mg PO BID 06/17/19 04/07/22 History Dulaglutide [Trulicity] 1.5 mg SQ Q7D 04/07/22 04/07/22 History Furosemide [Lasix] 20 mg PO DAILY 04/07/22 04/07/22 History Insulin Degludec [Tresiba] 30 units SQ QAM 04/07/22 04/07/22 History Magnesium Oxide [Magnesium] 500 mg PO DAILY 04/07/22 04/07/22 History Rosuvastatin [Crestor] 20 mg PO DAILY 04/07/22 04/07/22 History calcitrioL [Calcitriol] 0.25 mcg PO Q7D 04/07/22 04/07/22 History hydrALAZINE HCL [Hydralazine HCl] 100 mg PO BID 04/07/22 04/07/22 History Allergies Allergy/AdvReac Type Severity Reaction Status Date / Time ondansetron [From Zofran] Allergy Unknown Verified 04/07/22 15:16 Surgical - Exam Physical exam: General: Well-developed, well-nourished HEENT: Normocephalic, sclerae nonicteric Abdomen: Nontender, nondistended Extremities: No edema Neuro: Alert and oriented Assessment and Plan (1) Renal failure Narrative/Plan: 61-year-old male with kidney failure. We'll proceed with peritoneal dialysis catheter insertion. Risks of bleeding, infection, scarring, numbness, catheter malfunction fluid leak, bladder and bowel injury. Patient understands and wishes to proceed. Current Visit: Yes Status: Acute Code(s): N19 - UNSPECIFIED KIDNEY FAILURE SNOMED Code(s): 70374882
[2022-04-11 10:06] VITALS: TEMP 97.4
[2022-04-11] MEDS ORDERED: BUPIVACAIN-EPI 0.25%-1:200,000 30 ML VIAL SQ ONE ×3 (10:11→10:41)
[2022-04-11 10:12] LABS: Glucose,Whole Blood 81 mg/dL (70-110)
[2022-04-11] MEDS ORDERED: MINERAL OIL 1 APPLIC/ML OIL TOPICAL ONE (10:44)
[2022-04-11 11:11] LABS: Calcium 8.5 mg/dL (8.4-10.2); Potassium 4.5 mmol/L (3.5-5.1)
[2022-04-11] MEDS ORDERED: HYDROcodone/APAP 5-325MG 1 EACH TAB PO PRN (11:11)
[2022-04-11] MEDS ORDERED: HYDROmorphone 1 MG/ML 1 ML SYRINGE IVP PRN (11:11)
[2022-04-11] MEDS ORDERED: NALOXONE 0.4 MG/ML 1 ML VIAL IV PRN (11:11)
--- NOTE | 2022-04-11 11:13 | P.OP ---
Date of Procedure: 04/11/22 Procedure(s) Performed: PREOPERATIVE DIAGNOSIS: Renal failure POSTOPERATIVE DIAGNOSIS: Same PROCEDURE: Peritoneal dialysis catheter insertion SURGEON: Erika EBL: Minimal ANESTHESIA: Sedation plus local COMPLICATIONS: None OPERATIVE PROCEDURE: The patient was placed in the operative table in the supine position. The abdomen was prepped and draped in usual sterile fashion. A small vertical incision was made in the left periumbilical location. Dissection down through the subcutaneous tissues took place using electrocautery. The anterior rectus was divided vertically using the scalpel. The rectus was bluntly. The posterior rectus was visualized. An 0 Vicryl pursestring was placed. A small opening in the posterior rectus fascia and peritoneum took place using a Metzenbaum scissors. There were no adhesions to the suture that was placed. The pigtail catheter was advanced into the pelvis over a stylette. No resistance was met. The inner cuff was secured to the fascia using the 0 Vicryl pursestring that was placed. The catheter was tunneled to an exit site in the left lateral lower quadrant. The catheter was connected to the 1 L bag of saline and approximated 800 mL of saline was easily introduced into the peritoneal cavity. The fluid was then allowed to evacuate. The majority of the fluid was returned. The anterior rectus fascia was then reapproximated using a running 0 Vicryl stitch. The subcutaneous tissues reprepped using 3-0 Vicryl sutures and the skin using 4-0 Monocryl sutures. The outpatient dialysis adapter was applied to the end of the catheter. Sterile dressings were then applied after skin glue was placed over the incision. DISPOSITION: Stable to recovery room
[2022-04-11 11:40] LABS: Glucose,Whole Blood 88 mg/dL (70-110)
[2022-04-11 13:18] VITALS: RESP 16
[2022-04-11 15:12] VITALS: BP 182/78; PULSE 63
== END 2022-04-11 15:22 | disposition home or self-care (01) ==
LOC: OR 09:07
PROVIDERS: ATTEND Surgery
DX: N19 Unspecified kidney failure (principal); E11.9 Type 2 diabetes mellitus without complications; E78.5 Hyperlipidemia, unspecified; I10 Essential (primary) hypertension; Z79.4 Long term (current) use of insulin; Z82.49 Family history of ischemic heart disease and other diseases of the circulatory system; Z88.8 Allergy status to other drugs, medicaments and biological substances; Z90.49 Acquired absence of other specified parts of digestive tract; Z79.01 Long term (current) use of anticoagulants; Z79.899 Other long term (current) drug therapy; D64.9 Anemia, unspecified
CPT/HCPCS: 80048; 49421; C1752; J1100; J0690; J1644